=== PATIENT | male | born 1970 | race Caucasian/White ===

== ENCOUNTER 2023-05-02 10:23 | Inpatient (IN) | payer BC, SELFPAY ==
[2023-05-02] VITALS (29 sets, daily range): BP systolic 123–160; BP diastolic 76–108; PULSE 79–106; RESP 16–22; TEMP 36.7–36.8; O2SAT 94–99; BMI 36.1; BMI 35.7
--- NOTE | 2023-05-02 | IR_ITS ---
APPROVED REPORT Patient Location: Emer[facility] Radio Mechanic Helper: JAELYN Hughes RT (R) PROCEDURES Selective coronary angiogram Drug-eluting stent deployment to a chronically occluded proximal dominant right coronary artery Drug-eluting stent deployment to the proximal and mid LAD INDICATION Acute non-ST elevation myocardial infarction, Chronic occlusion of the right coronary artery, Coronary artery disease Informed consent was obtained prior to the procedure. COMPLICATIONS None Estimated Blood Loss: Less than 10 mls TECHNIQUE One percent lidocaine used to anesthetize the right anterior aspect of the wrist. The right radial artery was accessed via the Seldinger technique. A 6 Moz[place]ican sheath was placed in the right radial artery. 2.5 mg of Verapamil, 800 mcg of nitroglycerin, 1mg Lidocaine and 5000 U Heparin were given through the arterial sheath. The papa catheter was also used to perform right coronary selective angiography. The catheter was then used to perform left coronary artery angiography. At the end of the diagnostic angiogram therapeutic heparin was administered giving a therapeutic ACT and the guide catheter was placed in the right coronary followed by a Choice PT extra-support wire. The wire would not pass through the occlusion in the right coronary artery therefore a 2 mm x 12 mm balloon was advanced. The balloon was advanced to the tip of the chronic occlusion and the wire then pushed through the chronic occlusion. The balloon was advanced with significant pressure but eventually it was deployed at 18 grazyna which reduced the stenosis. A 3.5 x 38 mm [place] frontier stent was deployed at 20 grazyna reducing the chronic occlusion to 20%. A 3.75 x 12 mm noncompliant balloon was deployed at 20 grazyna in the proximal right coronary artery in order to further post dilate. ADY I flow was present at the beginning of the procedure with ADY-3 flow at the end of the procedure. Following this the guide catheter was exchanged for a 6 Moz[place] JL 3 guide catheter which was placed in the left main artery. A Choice PT extra-support wire was used to cross the occlusion in the mid LAD. A 3 mm x 26 mm [place] frontier stent was deployed at 18 grazyna reducing the subtotal occlusion to 0%. An additional 3 mm x 22 mm [place] frontier stent was placed proximal to the for stent yet still overlapping it and deployed at 24 grazyna to further reduce a proximal stenosis. ADY II flow was present at the beginning of the procedure with ADY-3 flow at the end of the procedure. At the end the procedure the apparatus was removed the sheath was removed and hemostasis was achieved using TR banding patient was transferred to the postop holding in stable condition ANGIOGRAPHIC RESULTS The left main artery Has a smooth ostial 20% stenosis The left anterior descending artery Has proximal 50% stenosis with a mid vessel greater than 95% stenosis accompanied by ADY II flow distally. The circumflex artery Is nondominant yet still large with proximal 30% stenosis. There is a small first obtuse marginal artery which has mid vessel 30% stenosis while an equally small second obtuse marginal artery is subtotally occluded. The right coronary artery Is large dominant and initially proximally chronically occluded. Following revascularization there was wide inline flow into a patent posterior lateral and posterior descending artery. Both PDA and PLV B have diffuse 30% stenoses The JACKSON ventriculogram reveals Not performed The left ventricular end-diastolic pressure Not measured IMPRESSION Chronically occluded proximal dominant right coronary artery with successful percutaneous revascularization reducing the 100% occlusion to 0% with 1 drug-eluting stent Subtotally occluded mid LAD with successful stenting of the proximal to mid LAD critical disease reduced to 0% with 2 contiguous drug-eluting stents Persistently subtotally occluded small second obtuse marginal artery which is not amenable to percutaneous revascularization PLAN 1. Effient 10 mg daily plus aspirin 81 mg daily 2. LDL less than 55 to be achieved with high intensity statin 3. Avoidance of tobacco products 4. Cardiac rehabilitation 5. Echocardiogram in the morning to determine ejection fraction and then treat accordingly 6. LifeVest if ejection fraction is 35% or less Electronically signed by : Chuy Burns MD 05/02/2023 17:07:50
--- NOTE | 2023-05-02 10:22 | ECG_ITS ---
APPROVED REPORT Exam: Resting ECG HR:87 bpm ECG Measurements Heart Rate 87 AXES NV 155 P 53 QRSd 93 QRS 62 QT 335 T 12 QTc 380 Conclusion SINUS RHYTHM MODERATE ST DEPRESSION [0.05+ mV ST DEPRESSION] ABNORMAL ECG UNCONFIRMED REPORT Electronically signed by : Kwan Rivera MD 05/03/2023 14:37:22
--- NOTE | 2023-05-02 10:28 | XR_ITS ---
FINAL REPORT CLINICAL HISTORY: chest pain progressive FINDINGS: SINGLE-VIEW CHEST The heart size is normal. The mediastinum is normal. The lungs are clear. There is no pneumothorax. There is a thoracolumbar scoliosis convex to the right measuring 30 degrees. IMPRESSION: No acute cardiopulmonary process. Reviewed, Interpreted and Dictated by Darien Albarran MD Transcribed by Brenda Nunn Authenticated and [facility]
[2023-05-02 10:34] LABS: Basophils # 0.1 K/mm3 (0-0.2); Basophils % 1.2 % (0.1-2.0); Eosinophils # 0.1 K/mm3 (0.0-0.4); Eosinophils % 1.2 % (0.1-12.0); Hematocrit 49.3 % (42.0-52.0); Hemoglobin 16.5 g/dL (14.1-18.0); Lymphocytes % 26.4 % (10-50); Mean Corpuscular HGB Conc 33.5 g/dL (31.8-35.4); Mean Corpuscular Hemoglobin 28.8 pg (27.0-31.2); Mean Platelet Volume 8.1 fl (7.4-10.4); Monocytes # 0.6 K/mm3 (0.1-1.0); Monocytes % 7.3 % (1.7-9.3); Neutrophils # 4.9 K/mm3 (1.8-7.8); Neutrophils % 63.9 % (37.0-80.0); Platelet Count 274 K/mm3 (142-424); Red Blood Count 5.73 M/mm3 (4.60-6.20); Red Cell Distribution Width 14.4 % (11.5-17.5); White Blood Count 7.7 K/mm3 (4.8-10.8)
[2023-05-02 10:38] LABS: Chloride 102 mmol/L (98-107); Potassium 3.9 mmoL/L (3.5-5.1); Sodium 137 mmol/L (136-145)
[2023-05-02 10:40] LABS: Blood Urea Nitrogen 11 mg/dl (9-20); Estimated Glomerular Filt Rate 89 ml/min (>60); GFR (African American) 108 ML/MIN (>60)
[2023-05-02 10:41] LABS: Alanine Aminotransferase 35 U/L (12-78); Albumin Level 4.2 g/dl (3.5-5.0); Albumin/Globulin Ratio 1.1 (1.1-1.8); Alkaline Phosphatase 125 U/L (38-126); Anion Gap 12.9 mEq/L (5-15); Aspartate Amino Transferase 36 U/L (17-59); Bilirubin,Total 2.1 mg/dl (0.2-1.3); Calcium 8.8 mg/dl (8.4-10.2); Carbon Dioxide 26 mmol/L (22.0-30.0); Glucose 110 mg/dl (74-100); Total Protein,Serum 8.2 g/dl (6.3-8.2)
[2023-05-02 10:54] LABS: Troponin I 0.29 ng/ml (0.00-0.034)
--- NOTE | 2023-05-02 10:57 | ED_ITS ---
Discharge Plan Disposition Patient Disposition: Admitted Referrals Follow up/Referrals: Tato Law MD [Primary Care Provider] - See instructions Clinical Impressions Clinical Impression: Non-ST elevation MT (NSTEMI) Discharge ED Provider: Tuan Villasenor General Chief Complaint: Chest Pain Stated Complaint: cp Time Seen by Provider: 05/02/23 10:28 Mode of Arrival: Ambulatory Source of Information: Patient Limitations: No Limitations Description of Symptoms (Recalled from ER Triage Doc. by RN): Patient states he began having chest pain around 0857 this morning. States he has had this before with exertion but comes and goes. Patient states he is not currently in pain at this time. History of Present Illness HPI narrative: 52-year-old male history of hypertension presenting with chest pain. Patient states that started around 8:57 AM just before arrival. Associated with pressure in his left arm. It is substernal/right of sternum, radiates to his left shoulder. No shortness of breath, vomiting, diaphoresis. He states he did feel nauseated. He has had these episodes on and off for the past few days. Worried because he has multiple family members who have of heart conditions. Related Data Allergies Allergy/AdvReac Type Severity Reaction Status Date / Time No Known Allergies Allergy Verified 05/02/23 11:05 [facility] Disclaimer: The information contained in this section may have been updated after the patient was seen, as this information can be updated by other users. Social History Smoking Status: Never smoker alcohol intake: never current occupational status: employed Travel in the last 8 weeks: None ROS Obtained: Yes All systems reviewed & no additional complaints except as documented Physical Exam General General appearance: alert Neck Neck exam: Present trachea midline Chest Chest inspection: Present normal inspection and symmetric chest wall rise Respiratory Respiratory exam: Present normal lung sounds bilaterally; Absent respiratory distress, wheezes, stridor, accessory muscle use or prolonged expiratory phase Cardiovascular Cardiovascular exam: Present regular rate and normal rhythm Extremities Exam Extremities exam: Absent edema Neurological Exam Neurological exam: Present alert, oriented X3 and CN II-XII intact Skin Skin exam: Present warm and dry; Absent cyanosis, diaphoresis or pallor HEART Score HEART Score HEART Score assessment performed?: Yes History (anamnesis): Moderately suspicious ECG: Non-specific disturbance Age: 45-65 years Risk factors: 1-2 risk factors Troponin: > 3x normal limit HEART Score: 6 Procedures Limited Ultrasound Indication:: Limited cardiac ultrasound Indication: Chest pain Identified cardiac views: -Cardiac parasternal long axis -Cardiac parasternal short axis Findings: -Cardiac activity present -Gross wall motion normal -Pericardial effusion absent -Right heart strain absent Impression: -Normal cardiac ultrasound Images were saved to permanent archive The study was technically adequate CPT: 06218 This study was performed by me, and I personally interpreted all images/videos. Based on my clinical judgement, these images were adequate and did not necessitate further imaging. Critical Care Critical Care Time Critical Care Time: Yes (cardiac) Attestation: On 05/02/23, the high probability of a clinically significant, sudden or life threatening deterioration of the following system(s) required my full and direct attention, intervention and personal management. The time I documented below is in addition to time spent performing reported procedures but includes the following listed in this critical care notation. Total Time Total Critical Care Time: 45 Medical Decision Making Medical Records Medical records reviewed: Yes I reviewed the patient's medical records. Sánchez Inquiry Pt receiving controlled substance: No Sánchez was queried for this patient: No Vital Signs Vital Signs: 05/02/23 10:23 05/02/23 10:43 05/02/23 10:30 Temperature 98.0 F Temperature Source Oral Pulse Rate 87 87 Pulse Rate [Right] 90 Respiratory Rate 18 Blood Pressure 149/88 H Blood Pressure [Right Arm] 149/98 H Blood Pressure Mean Blood Pressure Mean [Right Arm] 115 Blood Pressure Source [Right Arm] Automatic Cuff 02 Sat by Pulse Oximetry 99 97 Oxygen Delivery Method Room Air Room Air 05/02/23 11:05 05/02/23 11:30 05/02/23 12:01 Temperature Temperature Source Pulse Rate 81 81 89 Pulse Rate [Right] Respiratory Rate 18 16 19 Blood Pressure 160/108 H 159/98 H 148/92 H Blood Pressure [Right Arm] Blood Pressure Mean 122 Blood Pressure Mean [Right Arm] Blood Pressure Source [Right Arm] 02 Sat by Pulse Oximetry 99 95 96 Oxygen Delivery Method Room Air Room Air Room Air 05/02/23 12:30 05/02/23 13:37 05/02/23 13:42 Temperature Temperature Source Pulse Rate 92 H 88 106 H Pulse Rate [Right] Respiratory Rate 21 17 Blood Pressure 139/92 H 123/77 132/95 H Blood Pressure [Right Arm] Blood Pressure Mean Blood Pressure Mean [Right Arm] Blood Pressure Source [Right Arm] 02 Sat by Pulse Oximetry 99 97 98 Oxygen Delivery Method Room Air Room Air Room Air 05/02/23 13:43 Temperature Temperature Source Pulse Rate 94 H Pulse Rate [Right] Respiratory Rate 16 Blood Pressure 140/96 H Blood Pressure [Right Arm] Blood Pressure Mean Blood Pressure Mean [Right Arm] Blood Pressure Source [Right Arm] 02 Sat by Pulse Oximetry 98 Oxygen Delivery Method Room Air Lab Data Labs: Lab Results 05/02/23 10:24: WBC 7.7, RBC 5.73, Hgb 16.5, Hct 49.3, MCV 86.0, MCH 28.8, MCHC 33.5, RDW 14.4, Plt Count 274, MPV 8.1, Neut % (Auto) 63.9, Lymph % (Auto) 26.4, [place] % (Auto) 7.3, Eos % (Auto) 1.2, Baso % (Auto) 1.2, Neut # (Auto) 4.9, Lymph # (Auto) 2.0, [place] # (Auto) 0.6, Eos # (Auto) 0.1, Baso # (Auto) 0.1, APTT 32.5, D-Dimer 0.47, Sodium 137, Potassium 3.9, Chloride 102, Carbon Dioxide 26, Anion Gap 12.9, BUN 11, Creatinine 0.90, Estimated GFR 89, Est GFR ( Amer) 108, Glucose 110 H, Calcium 8.8, Total Bilirubin 2.1 H, AST 36, ALT 35, Alkaline Phosphatase 125, Troponin I 0.29 H, Total Protein 8.2, Albumin 4.2, Globulin 4.0 H, Albumin/Globulin Ratio 1.1 05/02/23 10:30: NT-Pro-B Natriuret Pep 88.5 05/02/23 12:53: Troponin I 0.80 H 05/02/23 10:24 05/02/23 10:24 Response Orders (Tests/Meds): ED MEDICATIONS Generic Name Dose Route Start Last Admin Trade Name Freq PRN Reason Stop Dose Admin Fentanyl Citrate 50 mcg 05/02/23 13:45 Fentanyl 100mcg/2ml Vial IV 05/03/23 01:46 Q3MINP PRN Moderate to Severe Pain (4-10) Fentanyl Citrate 25 mcg 05/02/23 13:45 Fentanyl 250mcg/5ml Vial IV 05/03/23 01:46 Q3MINP PRN Moderate to Severe Pain (4-10) Fentanyl Citrate 50 mcg 05/02/23 13:45 Fentanyl 250mcg/5ml Vial IV 05/03/23 01:46 Q3MINP PRN Moderate to Severe Pain (4-10) Fentanyl Citrate 25 mcg 05/02/23 13:45 Fentanyl 100mcg/2ml Vial IV 05/03/23 01:46 Q3MINP PRN Moderate to Severe Pain (4-10) Flumazenil 0.2 mg 05/02/23 13:45 Flumazenil 0.1mg/Ml 5ml Vial IV 05/03/23 01:46 NEEDED PRN Sedation Heparin Sodium (Porcine) 10,000 unit 05/02/23 13:45 Heparin 1,000 Units/Ml 10ml Vial (Piece Work Checker) IV 05/02/23 17:46 NEEDED PRN Emergency Box Upholstery Trimmer Hydralazine HCl 20 mg 05/02/23 13:45 Hydralazine 20mg/Ml Vial IV 05/02/23 17:46 ONCE PRN sbp>160 Heparin Sodium/Dextrose 500 mls @ 20 mls/hr 05/02/23 13:15 05/02/23 13:39 Heparin 25,000 Units In D5w 500ml Premix IV 06/01/23 13:14 Not Given .Q25H LANDEN 1,000 UNITS/HR Adenosine 180 mg/ Sodium 90 mls @ 634.392 mls/hr 05/02/23 13:45 Chloride IV 05/02/23 17:46 ONCE PRN fractional flow reserve 180 MCG/KG/MIN Adenosine 90 mg/ Sodium 90 mls @ 1,268.784 mls/hr 05/02/23 13:45 Chloride IV 05/02/23 17:46 ONCE PRN fractional flow reserve 180 MCG/KG/MIN Sodium Chloride 1,000 mls @ 25 mls/hr 05/02/23 13:45 Sod Chloride 0.9% 500ml Bag IV 05/03/23 13:46 .Q25H LANDEN Labetalol HCl 20 mg 05/02/23 13:45 Labetalol 20mg/4ml Syringe IV 05/02/23 17:46 ONCE PRN sbp>160 Midazolam HCl 1 mg 05/02/23 13:45 Midazolam 2mg/2ml Vial IV 05/03/23 01:46 Q3MINP PRN Sedation Midazolam HCl 1 mg 05/02/23 13:45 Midazolam Hcl 1mg/1ml 5ml Vial IV 05/03/23 01:46 Q3MINP PRN Sedation Naloxone HCl 0.4 mg 05/02/23 13:45 Naloxone 0.4mg/Ml Vial IV 05/03/23 01:46 Q5MINP PRN Decreased Respirations Nitroglycerin 800 mcg 05/02/23 13:45 Nitroglycerin 800mcg/8ml Syr (Piece Work Checker) IA 05/02/23 17:46 NEEDED PRN Emergency Box Upholstery Trimmer Protamine Sulfate 50 mg 05/02/23 13:45 Protamine Sulfate 50mg/5ml Vial (Piece Work Checker) IV 05/02/23 17:46 ONCE PRN act>200 Discontinued Medications Generic Name Dose Route Start Last Admin Trade Name Freq PRN Reason Stop Dose Admin Aspirin 324 mg 05/02/23 10:28 05/02/23 11:07 Aspirin 81mg Chewable Tablet PO 05/02/23 10:29 Not Given ONCE ONE Diphenhydramine HCl 50 mg 05/02/23 13:45 Diphenhydramine 50mg/Ml Vial IV 05/02/23 13:46 ONCE ONE Heparin Sodium (Porcine) 4,000 unit 05/02/23 13:15 05/02/23 13:32 Heparin Sodium 5,000 Unit/Ml Vial IV 05/02/23 13:16 4,000 unit ONCE ONE Administration Heparin Sodium/Sodium Chloride 3,000 unit 05/02/23 13:45 Heparin 1,000 Units/500ml Ns (Piece Work Checker) IV 05/02/23 13:46 ONCE ONE Iopamidol 100 ml 05/02/23 14:15 05/02/23 14:15 Iopamidol-370 (76%);100ml Bottle IV 05/02/23 14:16 100 ml ONCE ONE Administration Lidocaine HCl 20 ml 05/02/23 13:45 Lidocaine 1% 10ml Mdv IJ 05/02/23 13:46 ONCE ONE Lidocaine HCl 20 ml 05/02/23 13:45 Lidocaine 1% 5ml Pf Vial IJ 05/02/23 13:46 ONCE ONE Miscellaneous 1 each 05/02/23 13:00 Heparin Drip Consult NOTAPPLIC 06/01/23 12:59 CONSULT PHARMACY [facility] Sodium Chloride 10 ml 05/02/23 14:15 05/02/23 14:15 Sodium Chloride 0.9% 10ml Syr (Rad Only) IV 05/02/23 14:16 10 ml ONCE ONE Administration Sodium Chloride 50 ml 05/02/23 14:15 05/02/23 14:15 0.9 % Sodium Chloride 50 Ml Vial IV 05/02/23 14:16 50 ml ONCE ONE Administration Verapamil HCl 2.5 mg 05/02/23 13:45 Verapamil 2.5mg/Ml 2ml Vial IV 05/02/23 13:46 ONCE ONE ORDERS Category Date Time Status CTA Chest [CT angio chest - dissection] Stat Cat Scan 05/02/23 13:53 Taken POCUS Point of Care (ER Only) Stat Exams 05/02/23 10:28 Completed XR chest portable Stat Exams 05/02/23 10:28 Completed Basic Metabolic Panel Stat Lab 05/02/23 13:46 Ordered Brain Natriuretic Peptide Stat Lab 05/02/23 10:30 Completed Complete Blood Count Auto Diff Stat Lab 05/02/23 10:24 Completed Complete Blood Count Auto Diff Stat Lab 05/02/23 13:46 Ordered Comprehensive Metabolic Panel Stat Lab 05/02/23 10:24 Completed D-Dimer Stat Lab 05/02/23 10:24 Completed PTT Heparin (inpatient only) Stat Lab 05/02/23 10:24 Completed Troponin I Q3H Lab 05/02/23 12:53 Completed Troponin I Q3H Lab 05/02/23 16:30 Ordered Troponin I Stat Lab 05/02/23 10:24 Completed MDM Narrative Medical Decision Narrative: 52-year-old male history of hypertension presenting with chest pain. Patient states that started around 8:57 AM just before arrival. Associated with pressure in his left arm. It is substernal/right of sternum, radiates to his left shoulder. No shortness of breath, vomiting, diaphoresis. He states he did feel nauseated. He has had these episodes on and off for the past few days. Worried because he has multiple family members who have of heart conditions. History was obtained via conversation with patient. On arrival, patient hemodynamically stable, alert, oriented x4, appropriate, GCS 15, moving all extremities spontaneously, pupils equal and reactive to light. Full physical exam performed and significant for well-appearing male no acute distress. Lungs are clear to auscultation bilaterally, no abnormal cardiac findings. No lower extremity edema Differential includes ACS, MT, pneumothorax, PE, dissection, pneumothorax, aortic aneurysm, pneumonia, bronchitis, among others. Patient was given aspirin prior to arrival (81 x 6) for symptomatic management and correction of underlying abnormalities. Workup independently interpreted and significant for initial troponin 0.2. Nonactionable CBC or chemistry. Chest x-ray without pulmonary airspace disease. See radiology read for full review of final results. Bedside echo normal. Ind ependent interpretation of EKG shows sinus rhythm 87 beats a minute with ST depression isolated to lead I, no reciprocal change. NM, QRS, QT intervals within normal limits. Heart score 6. Patient was placed in observation beginning at 1030 in order to rule out evolving MT with serial troponins and determine need for admission versus home-going. The patient was provided heparin bolus and drip while awaiting results. Independent interpretation of results demonstrated positive delta troponin with second troponin being 0.8. On reevaluation, patient continuing to have pain that is 1-2 out of 10. At this time, I feel patient is appropriate admission for catheterization. Total observation time 4 hours.
[2023-05-02 11:15] LABS: NT Pro Brain Natriuretic Pep. 88.5 pg/mL (0-125)
--- NOTE | 2023-05-02 12:35 | ECG_ITS ---
APPROVED REPORT Exam: Resting ECG HR:85 bpm ECG Measurements Heart Rate 85 AXES TX 157 P 32 QRSd 86 QRS 32 QT 353 T -8 QTc 395 Conclusion SINUS RHYTHM LOW QRS VOLTAGE IN PRECORDIAL LEADS [QRS DEFLECTION < 1.0 mV IN CHEST LEADS] NONSPECIFIC T-WAVE ABNORMALITY BORDERLINE ECG UNCONFIRMED REPORT Electronically signed by : Kwan Rivera MD 05/03/2023 14:36:58
--- NOTE | 2023-05-02 13:27 | PC.NURSE ---
aware of trop of 0.80
[2023-05-02] MEDS: HEPARIN SODIUM 5,000 UNIT/ML VIAL 4000 UNIT IV (13:32)
[2023-05-02 13:43] LABS: PTT Heparin (inpatient only) 32.5 Seconds (23.6-34.0)
--- NOTE | 2023-05-02 13:53 | CT_ITS ---
FINAL REPORT TECHNIQUE: The patient was injected with IV contrast. Axial images were obtained through the chest in a PE protocol. 3-D reconstruction images were also performed. Individualized dose reduction techniques using automated exposure control or adjustment of the MA and/or KV according to patient's size were employed. CLINICAL HISTORY: r/o disection prior to cath FINDINGS: Mediastinal vasculature is adequately opacified. No pulmonary artery filling defects are identified to suggest PE. There is no aortic dissection. There is no axillary adenopathy. There is no hilar or mediastinal adenopathy. The heart size is normal. There is no pericardial or pleural effusion. Limited images of the upper abdomen reveal mild fatty infiltration of the liver. No suspicious infiltrate or nodule is identified. IMPRESSION: No pulmonary embolus or dissection. Reviewed, Interpreted and Dictated by Darien Albarran MD Transcribed by Brenda Nunn Authenticated and . [facility]
[2023-05-02 14:08] LABS: D-Dimer 0.47 ug/mL (0.0-0.5)
[2023-05-02] MEDS: IOPAMIDOL-370 (76%);100ML BOTTLE 100 ML IV (14:15)
[2023-05-02] MEDS: SODIUM CHLORIDE 0.9% 10ML SYR (RAD ONLY) 10 ML IV (14:15)
[2023-05-02] MEDS: 0.9 % SODIUM CHLORIDE 50 ML VIAL IV (14:15)
--- NOTE | 2023-05-02 14:33 | HMH.PHAINT1 ---
Pharmacy Intervention Comments: MEDICATION RECONCILIATION COMPLETED ON PATIENT USING EXTERNAL FILL HISTORY FROM PHARMACY. -CROW RAMOS, KIMD
--- NOTE | 2023-05-02 14:43 | PC.NURSE ---
Dr carpenter speaking with Dr Solis
--- NOTE | 2023-05-02 15:21 | PC.NURSE ---
pt has been clipped in all 4 sites and consented for heart cath
--- NOTE | 2023-05-02 15:40 | P.CONCA_ITS ---
History of Present Illness History of Present Illness Consult date: 05/02/23 Requesting physician: Tuan Villasenor Consult reason: chest pain Chief complaint: back pain History of present illness: 52-year-old white male without known cardiovascular disease who has a history of obesity with BMI of 36 and high blood pressure for several years. Recently reports blood pressures elevating over 170 with some exertional symptoms including back and shoulder discomfort. Today he was walking flat ground and felt pain subscapular region which radiated across his back. Typically the symptoms improved with a few deep breaths and rest but today they did not so he came to the emergency room for evaluation. EKG shows nonspecific T wave changes leads III and aVF, first troponin 0.2-second troponin 0.8. He is symptom-free at this time following aspirin and nitroglycerin. Blood pressure right arm 132/95 left arm 140/96. CTA is pending. [facility] Disclaimer: The information contained in this section may have been updated after the patient was seen, as this information can be updated by other users. Social History Smoking Status: Never smoker alcohol intake: never current occupational status: employed Travel in the last 8 weeks: None Review of Systems Constitutional Constitutional: Denies fatigue and Denies weakness Eyes Eyes: Denies loss of vision ENT Ears, Nose, Mouth, and Throat: Denies hearing loss and Denies vertigo *Cardiovascular Cardiovascular: Reports chest pain, Denies dyspnea and Denies syncope *Respiratory Respiratory: Denies cough and Denies dyspnea *Gastrointestinal Gastrointestinal: Denies change in stool character, Denies nausea and Denies vomiting *Genitourinary Genitourinary: Denies difficulty urinating *Musculoskeletal Musculoskeletal: Denies muscle weakness Integumentary/Breasts Skin/Breast: Denies changing lesions *Neurologic Neurologic: Denies loss of vision, Denies syncope, Denies vertigo and Denies weakness Endocrine Endocrine: Denies fatigue Exam Data for Last 24 hours Vital signs and Labs for Last 24 Hours: Temp Pulse Resp BP Pulse Ox O2 Del Method 98.0 F 81 17 138/94 H 97 Room Air 05/02/23 10:23 05/02/23 15:00 05/02/23 15:00 05/02/23 15:00 05/02/23 15:00 05/02/23 15:00 Laboratory Results - last 24 hr 05/02/23 10:24: WBC 7.7, RBC 5.73, Hgb 16.5, Hct 49.3, MCV 86.0, MCH 28.8, MCHC 33.5, RDW 14.4, Plt Count 274, MPV 8.1, Neut % (Auto) 63.9, Lymph % (Auto) 26.4, [place] % (Auto) 7.3, Eos % (Auto) 1.2, Baso % (Auto) 1.2, Neut # (Auto) 4.9, Lymph # (Auto) 2.0, [place] # (Auto) 0.6, Eos # (Auto) 0.1, Baso # (Auto) 0.1, APTT 32.5, D-Dimer 0.47, Sodium 137, Potassium 3.9, Chloride 102, Carbon Dioxide 26, Anion Gap 12.9, BUN 11, Creatinine 0.90, Estimated GFR 89, Est GFR ( Amer) 108, Glucose 110 H, Calcium 8.8, Total Bilirubin 2.1 H, AST 36, ALT 35, Alkaline Phosphatase 125, Troponin I 0.29 H, Total Protein 8.2, Albumin 4.2, Globulin 4.0 H, Albumin/Globulin Ratio 1.1 05/02/23 10:30: NT-Pro-B Natriuret Pep 88.5 05/02/23 12:53: Troponin I 0.80 H I & O for Last 24 hours: Intake & Output 04/29/23 04/30/23 05/01/23 05/02/23 23:59 23:59 23:59 23:59 Weight 259 lb Constitutional Constitutional: no acute distress and cooperative *Routine HEENT Exam Eye: Present PERRL *Routine Respiratory Exam Respiratory: Present CTA bilaterally; Absent accessory muscle use, wheezes or crackles *Routine Cardiovascular Exam Cardiovascular: Present RRR, Normal S1 and Normal S2; Absent murmur, gallop or rubs *Routine Abdominal Exam Abdominal: Present soft; Absent tenderness *Routine Extremities Exam Extremities: Present pulses intact; Absent cyanosis or edema *Routine Skin Exam Skin: Present intact; Absent erythema or wounds *Routine Neurological Exam Neurological: Present alert and oriented X3 Routine Psychiatric Exam Psychiatric: Present cooperative Meds Home Medications and Allergies Home Medications Medication Instructions Recorded Confirmed Type amlodipine 5 mg tablet 5 mg PO DAILY High Blood Pressure 05/02/23 05/02/23 History irbesartan 150 mg tablet 150 mg PO DAILY High Blood Pressure 05/02/23 05/02/23 History New Prescriptions to Start Prescriptions: Allergies Allergy/AdvReac Type Severity Reaction Status Date / Time No Known Allergies Allergy Verified 05/02/23 11:05 Assessment and Plan *Assessment and plan (1) Non-ST elevation [place] (NSTEMI): Status: Acute Category: Medical Code(s): I21.4 - Non-ST elevation (NSTEMI) myocardial infarction Plan NSTEMI -Patient's symptoms consistent with NSTEMI however need to rule out AAA first -Hold on heparin, stat CTA with plans for left heart cath pending results Hypertension -Slightly elevated here, 138/94 Obesity, BMI 36 -Will readdress outpatient Addendum: CTA negative, will proceed with, heparin, beta-bobby, statin. Left heart cath today.
[2023-05-02] MEDS: diphenhydrAMINE 50MG/ML VIAL 50 MG IV (16:48)
[2023-05-02] MEDS: NITROGLYCERIN 800MCG/8ML SYR (CATH LAB) 800 MCG IA ×2 (16:49→16:52)
[2023-05-02] MEDS: HEPARIN 1,000 UNITS/ML 10ML VIAL (CATH LAB) 10000 UNIT IV (16:49)
[2023-05-02] MEDS: VERAPAMIL 2.5MG/ML 2ML VIAL 2.5 MG IV (16:49)
[2023-05-02] MEDS: LIDOCAINE 1% 10ML MDV 20 ML IJ (16:49)
[2023-05-02] MEDS: 0.9 % SODIUM CHLORIDE 500 ML 25 ML IV (16:50)
[2023-05-02] MEDS: MIDAZOLAM HCL 1MG/1ML 5ML VIAL 1 MG IV (16:50)
[2023-05-02] MEDS: FENTANYL 100MCG/2ML VIAL 50 MCG IV (16:50)
[2023-05-02] MEDS: HEPARIN 1,000 UNITS/500ML NS (CATH LAB) 3000 UNIT IV (16:50)
[2023-05-02] MEDS: PRASUGREL 10MG TAB 60 MG PO (17:05)
[2023-05-02] MEDS: IOPAMIDOL-370 (76%);100ML BOTTLE 175 ML IV (18:32)
[2023-05-02 18:34] LABS: CATHL Activated Clotting Time > 400 SEC (74-125)
--- NOTE | 2023-05-02 18:40 | EXP.HP ---
History of Present Illness *Admission Date: 05/02/23 *Reason for visit:: Chest pain *History of present illness: This 52-year-old white male has hypertensive disease. He was seen in the office of [facility] yesterday. The day prior to that visit (Saturday) he had had a 20-minute episode of chest pain radiating to the back with shortness of breath and nausea. Blood pressure was elevated in the office yesterday. He states that he slept okay last night. This morning he awoke with chest pain shortness of breath nausea. He presented in the emergency room. He was found to have elevated troponins. CTA was ordered and was negative for evidence of dissection. It was felt that he warranted cardiac catheterization. He was seen by Dr. Burns and treated and stented accordingly. See report. From ER report: Initial troponin 0.2. Nonactionable CBC or chemistry. Chest x-ray without pulmonary airspace disease. See radiology read for full review of final results. Bedside echo normal. Independent interpretation of EKG shows sinus rhythm 87 beats a minute with ST depression isolated to lead I, no reciprocal change. GA, QRS, QT intervals within normal limits. Heart score 6. Patient was placed in observation beginning at 1030 in order to rule out evolving MO with serial troponins and determine need for admission versus home-going. The patient was provided heparin bolus and drip while awaiting results. Independent interpretation of results demonstrated positive delta troponin with second troponin being 0.8. On reevaluation, patient continuing to have pain that is 1-2 out of 10. At this time, patient is appropriate admission for catheterization. The patient has been a non-smoker. He does have a family history of cardiac disease. [facility] Disclaimer: The information contained in this section may have been updated after the patient was seen, as this information can be updated by other users. Medical History (Updated 05/02/23 @ 18:59 by Jose Solis MD) Hypertensive cardiovascular disease Surgical History (Updated 05/02/23 @ 18:59 by Jose Solis MD) History of arthroplasty of right ankle Status post coronary artery stent placement Social History Smoking Status: Never smoker alcohol intake: never current occupational status: employed Travel in the last 8 weeks: None Review of Systems Constitutional Constitutional: Denies fever(s), Denies poor appetite and Denies weakness Eyes Eyes: Denies change in vision and Denies loss of vision ENT Ears, Nose, Mouth, and Throat: Denies throat swelling, Denies tongue swelling and Denies vertigo Comments: Tonsillectomy and tympanostomy tubes in 1977. *Cardiovascular Cardiovascular: Reports as per HPI, Reports chest pain, Reports dyspnea, Denies edema, Denies irregular heart rhythm and Denies syncope *Respiratory Respiratory: Reports dyspnea *Gastrointestinal Gastrointestinal: Denies abdominal pain, Denies belching, Denies bloating, Denies change in bowel habits, Denies change in stool character and Denies cramping *Genitourinary Genitourinary: Denies urinary frequency, Denies urinary hesitancy, Denies urinary incontinence and Denies urinary urgency Comments: History of vasectomy 2007. *Musculoskeletal Musculoskeletal: Reports arthralgias (Right ankle. Status post fusion 2001.) and Reports other (Back surgery 2017.) *Neurologic Neurologic: Denies behavioral changes, Denies loss of vision, Denies syncope, Denies vertigo and Denies weakness Psychiatric Psychiatric: Denies abnormal sleep pattern, Denies anxiety, Denies behavioral changes and Denies depression Endocrine Endocrine: Denies change in body appearance Allergic/Immunologic Allergic/Immunologic: Denies throat swelling and Denies tongue swelling Meds Home Medications and Allergies Home Medications Medication Instructions Recorded Confirmed Type amlodipine 5 mg tablet 5 mg PO DAILY High Blood Pressure 05/02/23 05/02/23 History irbesartan 150 mg tablet 150 mg PO DAILY High Blood Pressure 05/02/23 05/02/23 History New Prescriptions to Start Prescriptions: Allergies Allergy/AdvReac Type Severity Reaction Status Date / Time No Known Allergies Allergy Verified 05/02/23 11:05 Exam Data for Last 24 hours Vital signs and Labs for Last 24 Hours: Temp Pulse Resp BP Pulse Ox O2 Del Method 98.2 F 89 18 154/82 H 98 Room Air 05/02/23 18:10 05/02/23 18:10 05/02/23 18:10 05/02/23 18:10 05/02/23 18:10 05/02/23 18:10 Laboratory Results - last 24 hr 05/02/23 10:24: WBC 7.7, RBC 5.73, Hgb 16.5, Hct 49.3, MCV 86.0, MCH 28.8, MCHC 33.5, RDW 14.4, Plt Count 274, MPV 8.1, Neut % (Auto) 63.9, Lymph % (Auto) 26.4, Barton % (Auto) 7.3, Eos % (Auto) 1.2, Baso % (Auto) 1.2, Neut # (Auto) 4.9, Lymph # (Auto) 2.0, Barton # (Auto) 0.6, Eos # (Auto) 0.1, Baso # (Auto) 0.1, APTT 32.5, D-Dimer 0.47, Sodium 137, Potassium 3.9, Chloride 102, Carbon Dioxide 26, Anion Gap 12.9, BUN 11, Creatinine 0.90, Estimated GFR 89, Est GFR ( Amer) 108, Glucose 110 H, Calcium 8.8, Total Bilirubin 2.1 H, AST 36, ALT 35, Alkaline Phosphatase 125, Troponin I 0.29 H, Total Protein 8.2, Albumin 4.2, Globulin 4.0 H, Albumin/Globulin Ratio 1.1 05/02/23 10:30: NT-Pro-B Natriuret Pep 88.5 05/02/23 12:53: Troponin I 0.80 H 05/02/23 17:24: Activated Clotting Time > 400 H* I & O for Last 24 hours: Intake & Output 04/30/23 05/01/23 05/02/23 05/03/23 11:59 11:59 11:59 11:59 Intake Total 470 / 470 Balance 470 / 470 Weight 259 lb 256 lb 5 oz Constitutional Constitutional: no acute distress (Post catheterization and stenting) *Routine HEENT Exam Head: Present normocephalic Eye: Present EOMI and PERRL; Absent conjunctival icterus or scleral injection ENT: Present mucous membranes moist *Routine Neck Exam Neck: Present full ROM; Absent JVD Routine Chest/Breast/Axilla Exam Chest wall: Absent tenderness Breast: Absent tenderness Axillae: Absent lymphadenopathy or tenderness *Routine Respiratory Exam Respiratory: Present CTA bilaterally, rales (Only a few bibasilar rales) and normal respiratory effort; Absent respiratory distress, stridor or wheezes *Routine Cardiovascular Exam Cardiovascular: Present RRR and ectopic (Occasional ectopics heard, but post exam monitor looks quite stable.) *Routine Abdominal Exam Abdominal: Present soft; Absent tenderness or distended *Routine Rectal Exam Rectal:: deferred *Routine Genitalia Exam Genitalia:: deferred *Routine Extremities Exam Extremities: Absent edema Comments: Bimalleolar scars of the right ankle. Right wrist with dressing and pressure device in place Routine Back/Spine/Pelvis Exam Back/Spine: Absent CVA tenderness or vertebral tenderness *Routine Skin Exam Skin: Present intact *Routine Neurological Exam Neurological: Present alert, oriented X3 and moving all extremities; Absent altered mental status Routine Psychiatric Exam Psychiatric: Present normal affect and normal thought process Assessment and Plan *Assessment and plan (1) Non-ST elevation [place] (NSTEMI): Status: Acute Category: Medical Code(s): I21.4 - Non-ST elevation (NSTEMI) myocardial infarction (2) Hypertensive cardiovascular disease: Status: Acute Category: Medical Code(s): I11.9 - Hypertensive heart disease without heart failure (3) History of arthroplasty of right ankle: Status: Acute Category: Surgical Code(s): Z96.661 - Presence of right artificial ankle joint (4) Status post coronary artery stent placement: Status: Acute Category: Surgical Code(s): Z95.5 - Presence of coronary angioplasty implant and graft Plan See orders.
[2023-05-02] MEDS: ATORVASTATIN 40MG TABLET 40 MG PO (20:03)
[2023-05-02] MEDS: CARVEDILOL 6.25MG TABLET 6.25 MG PO (22:03)
[2023-05-03] VITALS (9 sets, daily range): BP systolic 124–149; BP diastolic 75–91; PULSE 75–100; RESP 16–18; TEMP 36.9–37.3; O2SAT 94–98; BMI 34.8
--- NOTE | 2023-05-03 06:17 | PC.NURSE ---
traclet off at 2300 - no complications. denies cp, soa, etc - girlfriend at bedside t/o night
[2023-05-03 06:39] LABS: Basophils # 0.1 K/mm3 (0-0.2); Basophils % 0.7 % (0.1-2.0); Eosinophils # 0.1 K/mm3 (0.0-0.4); Eosinophils % 0.6 % (0.1-12.0); Hematocrit 46.7 % (42.0-52.0); Hemoglobin 15.9 g/dL (14.1-18.0); Lymphocytes # 2.1 K/mm3 (0.7-4.5); Lymphocytes % 20.9 % (10-50); Mean Corpuscular Hemoglobin 28.6 pg (27.0-31.2); Mean Corpuscular Volume 84.3 fl (80-94); Mean Platelet Volume 7.8 fl (7.4-10.4); Monocytes # 0.8 K/mm3 (0.1-1.0); Monocytes % 8.1 % (1.7-9.3); Neutrophils % 69.7 % (37.0-80.0); Platelet Count 245 K/mm3 (142-424); Red Blood Count 5.54 M/mm3 (4.60-6.20); Red Cell Distribution Width 14.6 % (11.5-17.5); White Blood Count 10.1 K/mm3 (4.8-10.8)
[2023-05-03 06:46] LABS: Anion Gap 13.9 mEq/L (5-15); Blood Urea Nitrogen 7 mg/dl (9-20); Calcium 8.7 mg/dl (8.4-10.2); Carbon Dioxide 22 mmol/L (22.0-30.0); Chloride 103 mmol/L (98-107); Creatinine Clearance Estimated 176 mL/min (50-200); Estimated Glomerular Filt Rate 102 ml/min (>60); GFR (African American) 124 ML/MIN (>60); Glucose 104 mg/dl (74-100); Potassium 3.9 mmoL/L (3.5-5.1); Sodium 135 mmol/L (136-145)
--- NOTE | 2023-05-03 08:28 | CA_ITS ---
APPROVED REPORT EXAM: Comprehensive 2D, Doppler, and color-flow Echocardiogram with contrast Toolroom Helper: Zenobia Garcia RT(R) Ht: 5 ft 11 in Wt: 259lbs BSA: 2.35 BP: 154/82 mmHg Indications: NSTEMI, CP, HAY, HTN, family history of HD Echo Enhancing Agent Indication: Endocardial border delineation Agent(s) / Amount(s) Used: Definity 2 cc M-Mode Dimensions RVDd 2.58 cm (0.9-2.6) LA Diam 2.97 cm (1.9-4.0) LVDd 4.41 cm (3.5-5.7) LVDs 3.80 cm (3.5-5.7) IVSd 1.06 cm (0.6-1.1) PWd 0.93 cm (0.6-1.1) EF (Teich) 29.70% FS 13.80% EDV (Teich) 88.20 mL ESV (Teich) 62.00 mL LV Diastology E Decel Time 150 (160-240 msec) E/A Ratio 0.7 Mitral Valve MV E Max [place]. 58.0 (40-130 cm/s) MV A Velocity 88.0 (40-130 cm/s) E/A Ratio 0.66 MV PHT 44.0 ms Left Ventricle The left ventricle is normal size. The left ventricular systolic function is mildly reduced. There is increased left ventricular wall thickness. There is mild global hypokinesis present. There is severe hypokinesis of the septal, anteroseptal, and inferoseptal LV mccauley. Transmitral Doppler flow pattern suggests impaired LV relaxation. LVEF is 40-45%. Right Ventricle The right ventricle is normal size. The right ventricular systolic function is normal. Atria The left atrium size is normal. The right atrium size is normal. The interatrial septum is not well visualized. Aortic Valve The aortic valve is mildly thickened. There is no aortic valvular stenosis. No aortic regurgitation is present. Mitral Valve The mitral valve leaflets are mildly thickened. No evidence of mitral valve stenosis. Trace mitral regurgitation. Tricuspid Valve The tricuspid valve leaflets are thin and pliable. Trace tricuspid regurgitation. There is insufficient TR jet to estimate RVSP. Pulmonic Valve The pulmonary valve is normal in structure. Trace pulmonic regurgitation. Great Vessels The aortic root is normal in size. The ascending aorta is normal in size. The IVC is not well visualized. Pericardium There is no pericardial effusion. Other Information Study Quality: Technically Difficult Conclusion Technically difficult study due to poor accoustic windows. Mild reduction in LV systolic function (LVEF 40-45%). Severe hypokinesis of the septal, anteroseptal, and inferoseptal LV mccauley. No significant valvular stenosis or regurgitation. Electronically signed by : Thao Canchola MD 05/03/2023 19:43:48
--- NOTE | 2023-05-03 08:33 | EXP.ACUTE.PN ---
Subjective *Date: 05/03/23 *Time: 08:53 Interval history: Patient is feeling better this morning. He denies any chest pain or shortness of breath. He states he rested well. Medical Exam Vital signs and Labs for Last 24 Hours: Vital Signs Temp Pulse Pulse Resp BP BP Pulse Ox 05/03/23 07:43 98.7 F 96 H 17 141/82 H 94 L 05/03/23 06:11 05/03/23 04:00 86 05/03/23 05:00 05/03/23 03:00 05/03/23 01:00 05/03/23 04:00 98.4 F 98 H 16 149/91 H 95 05/03/23 00:10 75 18 126/84 97 05/02/23 23:10 80 18 140/90 96 05/02/23 22:10 89 18 155/100 H 96 05/02/23 21:10 80 16 152/90 H 95 05/02/23 20:10 95 H 18 149/80 H 94 L 05/03/23 00:52 85 05/02/23 19:40 82 18 147/94 H 97 05/02/23 19:10 84 18 142/90 H 98 05/02/23 22:34 05/02/23 20:00 05/02/23 21:00 05/02/23 18:40 98.0 F 89 18 141/87 H 98 05/02/23 18:10 98.2 F 89 18 154/82 H 98 05/02/23 17:40 98.1 F 83 16 142/80 H 96 05/02/23 17:55 98.0 F 83 16 130/79 97 05/02/23 17:25 98.0 F 86 16 146/80 H 97 05/02/23 18:08 05/02/23 17:10 87 19 135/76 96 05/02/23 17:00 88 20 134/92 H 96 05/02/23 17:05 83 20 131/91 H 95 05/02/23 16:57 90 90 20 140/92 H 95 05/02/23 16:04 98.0 F 79 18 130/85 05/02/23 15:00 81 17 138/94 H 97 05/02/23 14:30 94 H 22 138/91 H 96 05/02/23 14:24 103 H 142/83 H 98 05/02/23 13:43 94 H 16 140/96 H 98 05/02/23 13:42 106 H 17 132/95 H 98 05/02/23 13:37 88 123/77 97 05/02/23 12:30 92 H 21 139/92 H 99 05/02/23 12:01 89 19 148/92 H 96 05/02/23 11:30 81 16 159/98 H 95 05/02/23 11:05 81 18 160/108 H 99 05/02/23 10:30 87 149/88 H 97 05/02/23 10:43 87 05/02/23 10:23 98.0 F 90 18 149/98 H 99 O2 Del Method 05/03/23 07:43 Room Air 05/03/23 06:11 Room Air 05/03/23 04:00 05/03/23 05:00 Room Air 05/03/23 03:00 Room Air 05/03/23 01:00 Room Air 05/03/23 04:00 Room Air 05/03/23 00:10 Nasal Cannula 05/02/23 23:10 Room Air 05/02/23 22:10 05/02/23 21:10 Room Air 05/02/23 20:10 05/03/23 00:52 05/02/23 19:40 Room Air 05/02/23 19:10 05/02/23 22:34 Room Air 05/02/23 20:00 Room Air 05/02/23 21:00 Room Air 05/02/23 18:40 Room Air 05/02/23 18:10 Room Air 05/02/23 17:40 Room Air 05/02/23 17:55 Room Air 05/02/23 17:25 Room Air 05/02/23 18:08 Room Air 05/02/23 17:10 05/02/23 17:00 Room Air 05/02/23 17:05 Room Air 05/02/23 16:57 Room Air 05/02/23 16:04 Room Air 05/02/23 15:00 Room Air 05/02/23 14:30 Room Air 05/02/23 14:24 Room Air 05/02/23 13:43 Room Air 05/02/23 13:42 Room Air 05/02/23 13:37 Room Air 05/02/23 12:30 Room Air 05/02/23 12:01 Room Air 05/02/23 11:30 Room Air 05/02/23 11:05 Room Air 05/02/23 10:30 Room Air 05/02/23 10:43 05/02/23 10:23 Room Air Intake and Output 05/02/23 05/03/23 05/03/23 19:59 03:59 11:59 Intake Total 470 / 850 140 / 850 240 / 850 Output Total 0 / 0 0 / 0 Balance 470 / 850 140 / 850 240 / 850 Intake: Intake, Oral Amount 470 / 830 120 / 830 240 / 830 Intake, Other Amount 20 / 20 Output: Output, Urine Amount 0 / 0 0 / 0 Other: Intake, Other Source Saline Solution Number of Unmeasured Voids 1 1 Weight 256 lb 5 oz 248 lb 11.2 oz Patient Weight 05/03/23 11:59 Weight 248 lb 11.2 oz Laboratory Results - last 24 hr 05/02/23 10:24: WBC 7.7, RBC 5.73, Hgb 16.5, Hct 49.3, MCV 86.0, MCH 28.8, MCHC 33.5, RDW 14.4, Plt Count 274, MPV 8.1, Neut % (Auto) 63.9, Lymph % (Auto) 26.4, [place] % (Auto) 7.3, Eos % (Auto) 1.2, Baso % (Auto) 1.2, Neut # (Auto) 4.9, Lymph # (Auto) 2.0, [place] # (Auto) 0.6, Eos # (Auto) 0.1, Baso # (Auto) 0.1, APTT 32.5, D-Dimer 0.47, Sodium 137, Potassium 3.9, Chloride 102, Carbon Dioxide 26, Anion Gap 12.9, BUN 11, Creatinine 0.90, Estimated GFR 89, Est GFR ( Amer) 108, Glucose 110 H, Calcium 8.8, Total Bilirubin 2.1 H, AST 36, ALT 35, Alkaline Phosphatase 125, Troponin I 0.29 H, Total Protein 8.2, Albumin 4.2, Globulin 4.0 H, Albumin/Globulin Ratio 1.1 05/02/23 10:30: NT-Pro-B Natriuret Pep 88.5 05/02/23 12:53: Troponin I 0.80 H 05/02/23 17:24: Activated Clotting Time > 400 H* 05/02/23 20:14: Troponin I 30.50 H 05/03/23 06:16: WBC 10.1 D, RBC 5.54, Hgb 15.9, Hct 46.7, MCV 84.3, MCH 28.6, MCHC 34.0, RDW 14.6, Plt Count 245, MPV 7.8, Neut % (Auto) 69.7, Lymph % (Auto) 20.9, [place] % (Auto) 8.1, Eos % (Auto) 0.6, Baso % (Auto) 0.7, Neut # (Auto) 7.0, Lymph # (Auto) 2.1, [place] # (Auto) 0.8, Eos # (Auto) 0.1, Baso # (Auto) 0.1, Sodium 135 L, Potassium 3.9, Chloride 103, Carbon Dioxide 22, Anion Gap 13.9, BUN 7 L D, Creatinine 0.80, Estimated Creat Clear 176, Estimated GFR 102, Est GFR ( Amer) 124, Glucose 104 H, Calcium 8.7 I & O for Labs for Last 24 Hours: Intake & Output 04/30/23 05/01/23 05/02/23 05/03/23 11:59 11:59 11:59 11:59 Intake Total 850 / 850 Output Total 0 / 0 Balance 850 / 850 Weight 259 lb 248 lb 11.2 oz Constitutional: Present no acute distress Respiratory: Present CTA bilaterally Cardiac: Present Reg Rate and Rhythm GI: Present soft and normal bowel sounds; Absent distention or tenderness Extremities: Absent edema, clubbing or cyanosis Skin: Present intact Neuro: Present alert and awake Assessment and Plan *Assessment and plan (1) Non-ST elevation [place] (NSTEMI): Status: Acute Category: Medical Code(s): I21.4 - Non-ST elevation (NSTEMI) myocardial infarction (2) Hypertensive cardiovascular disease: Status: Acute Category: Medical Code(s): I11.9 - Hypertensive heart disease without heart failure (3) History of arthroplasty of right ankle: Status: Acute Category: Surgical Code(s): Z96.661 - Presence of right artificial ankle joint (4) Status post coronary artery stent placement: Status: Acute Category: Surgical Code(s): Z95.5 - Presence of coronary angioplasty implant and graft Plan Patient is doing well post cath and stenting. Cardiology to follow. Dr. Law entry - Saw patient, agree with above note.
[2023-05-03 08:53] LABS: Chol/HDL Ratio 6.8 (1-3.5); Cholesterol 196 mg/dl (140-200); HDL Cholesterol 29 mg/dl (40-60); Triglycerides 76 mg/dl (30-150); VLDL Cholesterol 15 mg/dL (0-40)
[2023-05-03 09:03] LABS: Direct LDL Cholesterol 140.45 mg/dL (100-129)
[2023-05-03] MEDS: PRASUGREL 10MG TAB 10 MG PO (09:18)
[2023-05-03] MEDS: ASPIRIN 81MG CHEWABLE TABLET 81 MG PO (09:18)
[2023-05-03] MEDS: CARVEDILOL 6.25MG TABLET 6.25 MG PO ×2 (09:18→18:55)
[2023-05-03] MEDS: DEFINITY US ECHO CONTRAST 2ML INJ 2 MG IV (09:25)
[2023-05-03] MEDS: IRBESARTAN 150MG TAB 150 MG PO (11:00)
--- NOTE | 2023-05-03 11:32 | EXP.CARD.PN ---
Subjective Subjective Date: 05/03/23 Time: 10:00 Principal diagnosis: NSTEMI Interval history: Left heart cath last night with successful stenting of RCA and LAD. Please refer to heart cath for details. Patient reports he is feeling at baseline today, no chest pain or shortness of breath. Exam Data for Last 24 hours Vital signs and Labs for Last 24 Hours: Temp Pulse Resp BP Pulse Ox O2 Del Method 99.2 F 94 H 18 126/80 98 Room Air 05/03/23 11:19 05/03/23 11:19 05/03/23 11:19 05/03/23 11:19 05/03/23 11:19 05/03/23 11:19 Laboratory Results - last 24 hr 05/02/23 10:24: APTT 32.5, D-Dimer 0.47 05/02/23 12:53: Troponin I 0.80 H 05/02/23 17:24: Activated Clotting Time > 400 H* 05/02/23 20:14: Troponin I 30.50 H 05/03/23 06:16: WBC 10.1 D, RBC 5.54, Hgb 15.9, Hct 46.7, MCV 84.3, MCH 28.6, MCHC 34.0, RDW 14.6, Plt Count 245, MPV 7.8, Neut % (Auto) 69.7, Lymph % (Auto) 20.9, [place]ff[place] % (Auto) 8.1, Eos % (Auto) 0.6, Baso % (Auto) 0.7, Neut # (Auto) 7.0, Lymph # (Auto) 2.1, [place] # (Auto) 0.8, Eos # (Auto) 0.1, Baso # (Auto) 0.1, Sodium 135 L, Potassium 3.9, Chloride 103, Carbon Dioxide 22, Anion Gap 13.9, BUN 7 L D, Creatinine 0.80, Estimated Creat Clear 176, Estimated GFR 102, Est GFR ( Amer) 124, Glucose 104 H, Calcium 8.7, Triglycerides 76, Cholesterol 196, LDL Cholesterol Direct 140.45 H, VLDL Cholesterol 15, HDL Cholesterol 29 L, Cholesterol/HDL Ratio 6.8 H I & O for Last 24 hours: Intake & Output 04/30/23 05/01/23 05/02/23 05/03/23 23:59 23:59 23:59 23:59 Intake Total 610 / 610 240 / 240 Output Total 0 / 0 Balance 610 / 610 240 / 240 Weight 256 lb 5 oz 248 lb 11.2 oz Constitutional Constitutional: no acute distress and cooperative *Routine HEENT Exam Eye: Present PERRL *Routine Respiratory Exam Respiratory: Present CTA bilaterally; Absent accessory muscle use, wheezes or crackles *Routine Cardiovascular Exam Cardiovascular: Present RRR, Normal S1 and Normal S2; Absent murmur, gallop or rubs *Routine Abdominal Exam Abdominal: Present soft; Absent tenderness *Routine Extremities Exam Extremities: Present pulses intact; Absent cyanosis or edema *Routine Skin Exam Skin: Present intact; Absent erythema or wounds *Routine Neurological Exam Neurological: Present alert and oriented X3 Routine Psychiatric Exam Psychiatric: Present cooperative Progress Note: A&P Assessment and plan (1) Non-ST elevation [place] (NSTEMI): Status: Acute (2) Hypertensive cardiovascular disease: Status: Acute (3) History of arthroplasty of right ankle: Status: Acute (4) Status post coronary artery stent placement: Status: Acute Assessment and Plan Assessment and Plan for All Diagnoses:: MV-CAD s/p NSTEMI with PCI 05/02/23 -Patient presented with worsening episodes of HAY and subscapular pain. Rising serial troponins in the ED with inferior T wave changes. - LHC 05/02 IMPRESSION Chronically occluded proximal dominant right coronary artery with successful percutaneous revascularization reducing the 100% occlusion to 0% with 1 drug-eluting stent Subtotally occluded mid LAD with successful stenting of the proximal to mid LAD critical disease reduced to 0% with 2 contiguous drug-eluting stents Persistently subtotally occluded small second obtuse marginal artery which is not amenable to percutaneous revascularization - Plan: DAPT, Statin, BB, ARB, Cardiac Rehab, risk factor control. 2D ECHO today. Hypertension -Slightly elevated here, 138/94 -cont BB/ARB, OP BP log Obesity, BMI 36 -Will readdress outpatient -Check A1C and LDL 05/03: DC pending ECHO results.
--- NOTE | 2023-05-03 16:40 | PC.NURSE ---
Cardiology office called at pt. request. Results for echo still not available. Pt. was told by cardiology that he should be able to be d/c'd this afternoon. No answer in office.
[2023-05-03 18:03] LABS: Hemoglobin A1C 5.5 % (4.0-6.0)
--- NOTE | 2023-05-03 18:51 | EXP.ACUTE.PN ---
Subjective *Date: 05/03/23 *Time: 18:51 Interval history: Patient has had a good day, no new complaints, anxious to go home. Medical Exam Vital signs and Labs for Last 24 Hours: Vital Signs Temp Pulse Pulse Resp BP Pulse Ox O2 Del Method 05/03/23 17:03 99 H 05/03/23 17:00 Room Air 05/03/23 15:18 98.7 F 95 H 18 124/75 95 Room Air 05/03/23 15:00 Room Air 05/03/23 12:00 96 H 05/03/23 08:00 100 H 05/03/23 13:00 Room Air 05/03/23 11:00 Room Air 05/03/23 09:00 Room Air 05/03/23 11:19 99.2 F 94 H 18 126/80 98 Room Air 05/03/23 08:00 Room Air 05/03/23 07:43 98.7 F 96 H 17 141/82 H 94 L Room Air 05/03/23 06:11 Room Air 05/03/23 04:00 86 05/03/23 05:00 Room Air 05/03/23 03:00 Room Air 05/03/23 01:00 Room Air 05/03/23 04:00 98.4 F 98 H 16 149/91 H 95 Room Air 05/03/23 00:10 75 18 126/84 97 Nasal Cannula 05/02/23 23:10 80 18 140/90 96 Room Air 05/02/23 22:10 89 18 155/100 H 96 05/02/23 21:10 80 16 152/90 H 95 Room Air 05/02/23 20:10 95 H 18 149/80 H 94 L 05/03/23 00:52 85 05/02/23 19:40 82 18 147/94 H 97 Room Air 05/02/23 19:10 84 18 142/90 H 98 05/02/23 22:34 Room Air 05/02/23 20:00 Room Air 05/02/23 21:00 Room Air Intake and Output 05/03/23 05/03/23 05/03/23 07:59 15:59 23:59 Intake Total 240 / 840 240 / 840 360 / 840 Output Total 0 / 0 0 / 0 0 / 0 Balance 240 / 840 240 / 840 360 / 840 Intake: Intake, Oral Amount 240 / 840 240 / 840 360 / 840 Output: Output, Urine Amount 0 / 0 0 / 0 0 / 0 Other: Number of Voids 1 Number of Unmeasured Voids 1 2 1 Weight 248 lb 11.2 oz 248 lb 10.903 oz Patient Weight 05/03/23 23:59 Weight 248 lb 10.903 oz Laboratory Results - last 24 hr 05/02/23 20:14: Troponin I 30.50 H 05/03/23 06:16: WBC 10.1 D, RBC 5.54, Hgb 15.9, Hct 46.7, MCV 84.3, MCH 28.6, MCHC 34.0, RDW 14.6, Plt Count 245, MPV 7.8, Neut % (Auto) 69.7, Lymph % (Auto) 20.9, [place] % (Auto) 8.1, Eos % (Auto) 0.6, Baso % (Auto) 0.7, Neut # (Auto) 7.0, Lymph # (Auto) 2.1, [place] # (Auto) 0.8, Eos # (Auto) 0.1, Baso # (Auto) 0.1, Sodium 135 L, Potassium 3.9, Chloride 103, Carbon Dioxide 22, Anion Gap 13.9, BUN 7 L D, Creatinine 0.80, Estimated Creat Clear 176, Estimated GFR 102, Est GFR ( Amer) 124, Glucose 104 H, Hemoglobin A1c 5.5, Calcium 8.7, Triglycerides 76, Cholesterol 196, LDL Cholesterol Direct 140.45 H, VLDL Cholesterol 15, HDL Cholesterol 29 L, Cholesterol/HDL Ratio 6.8 H I & O for Labs for Last 24 Hours: Intake & Output 04/30/23 05/01/23 05/02/23 05/03/23 23:59 23:59 23:59 23:59 Intake Total 610 / 610 840 / 840 Output Total 0 / 0 Balance 610 / 610 840 / 840 Weight 256 lb 5 oz 248 lb 10.903 oz Radiology Reports for the Last 24 Hours: Spoke to Dr. Osuna, Echo shows LVEF 40-45% Assessment and Plan *Assessment and plan (1) Non-ST elevation ID (NSTEMI): Status: Acute Category: Medical Code(s): I21.4 - Non-ST elevation (NSTEMI) myocardial infarction (2) Status post coronary artery stent placement: Status: Acute Category: Surgical Code(s): Z95.5 - Presence of coronary angioplasty implant and graft (3) Hypertensive cardiovascular disease: Status: Acute Category: Medical Code(s): I11.9 - Hypertensive heart disease without heart failure (4) Decreased cardiac ejection fraction: Status: Acute Category: Medical Code(s): R93.1 - Abnormal findings on diagnostic imaging of heart and coronary circulation Plan OK per cardiology to discharge home. Plan office f/u with cardiology next week, cardiac rehab to be arranged. Prescriptions sent to clinic pharmacy.
[2023-05-03] MEDS: ATORVASTATIN 40MG TABLET 40 MG PO (18:55)
--- NOTE | 2023-05-06 15:23 | CARE MANAGER ---
Patient did not provide a phone number at time of admission, unable to complete f/u phone call.
--- NOTE | 2023-05-06 22:36 | EXP.DC.SUM ---
General Admission date:: 05/02/23 Discharge date: 05/03/23 HPI HPI HPI: This 52-year-old white male has hypertensive disease. He was seen in the office of [facility] yesterday. The day prior to that visit (Saturday) he had had a 20-minute episode of chest pain radiating to the back with shortness of breath and nausea. Blood pressure was elevated in the office yesterday. He states that he slept okay last night. This morning he awoke with chest pain shortness of breath nausea. He presented in the emergency room. He was found to have elevated troponins. CTA was ordered and was negative for evidence of dissection. It was felt that he warranted cardiac catheterization. He was seen by Dr. Burns and treated and stented accordingly. See report. From ER report: Initial troponin 0.2. Nonactionable CBC or chemistry. Chest x-ray without pulmonary airspace disease. See radiology read for full review of final results. Bedside echo normal. Independent interpretation of EKG shows sinus rhythm 87 beats a minute with ST depression isolated to lead I, no reciprocal change. [place], QRS, QT intervals within normal limits. Heart score 6. Patient was placed in observation beginning at 1030 in order to rule out evolving CO with serial troponins and determine need for admission versus home-going. The patient was provided heparin bolus and drip while awaiting results. Independent interpretation of results demonstrated positive delta troponin with second troponin being 0.8. On reevaluation, patient continuing to have pain that is 1-2 out of 10. At this time, patient is appropriate admission for catheterization. The patient has been a non-smoker. He does have a family history of cardiac disease. Hospital Course Hospital Course Hospital Course: The patient was taken to the [facility] and had a chronically occluded proximal dominant right coronary artery and 1 stent was placed. There was a subtotally occluded mid LAD, and this was successfully stented as well with 2 stents. There was a persistently subtotally occluded small second obtuse marginal artery which was not amenable to percutaneous revascularization. The patient was started on Effient 10 mg daily plus aspirin 81 mg daily. He was also started on a high intensity statin and an echo was ordered for the next day. By 05/03/2023, he was feeling better and denied any chest pain or shortness of breath he was resting well. He was cleared by cardiology for discharge and will follow-up in their office. He will also start cardiac rehab. Exam Data for Last 24 hours Vital signs and Labs for Last 24 Hours: Temp Pulse Resp BP Pulse Ox O2 Del Method 98.7 F 99 H 18 124/75 95 Room Air 05/03/23 15:18 05/03/23 17:03 05/03/23 15:18 05/03/23 15:18 05/03/23 15:18 05/03/23 17:00 I & O for Last 24 hours: Intake & Output 05/04/23 05/05/23 05/06/23 05/07/23 11:59 11:59 11:59 11:59 Intake Total 600 / 600 Output Total 0 / 0 Balance 600 / 600 Narrative: Constitutional Constitutional: no acute distress (Post catheterization and stenting) *Routine HEENT Exam Head: Present normocephalic Eye: Present EOMI and PERRL; Absent conjunctival icterus or scleral injection ENT: Present mucous membranes moist *Routine Neck Exam Neck: Present full ROM; Absent JVD Routine Chest/Breast/Axilla Exam Chest wall: Absent tenderness Breast: Absent tenderness Axillae: Absent lymphadenopathy or tenderness *Routine Respiratory Exam Respiratory: Present CTA bilaterally, rales (Only a few bibasilar rales) and normal respiratory effort; Absent respiratory distress, stridor or wheezes *Routine Cardiovascular Exam Cardiovascular: Present RRR and ectopic (Occasional ectopics heard, but post exam monitor looks quite stable.) *Routine Abdominal Exam Abdominal: Present soft; Absent tenderness or distended *Routine Rectal Exam Rectal:: deferred *Routine Genitalia Exam Genitalia:: deferred *Routine Extremities Exam Extremities: Absent edema Comments: Bimalleolar scars of the right ankle. Right wrist with dressing and pressure device in place Routine Back/Spine/Pelvis Exam Back/Spine: Absent CVA tenderness or vertebral tenderness *Routine Skin Exam Skin: Present intact *Routine Neurological Exam Neurological: Present alert, oriented X3 and moving all extremities; Absent altered mental status Routine Psychiatric Exam Psychiatric: Present normal affect and normal thought process DS: Diagnosis Discharge Diagnosis (1) Non-ST elevation CO (NSTEMI): Status: Acute Code(s): I21.4 - Non-ST elevation (NSTEMI) myocardial infarction (2) Status post coronary artery stent placement: Status: Acute Code(s): Z95.5 - Presence of coronary angioplasty implant and graft (3) Hypertensive cardiovascular disease: Status: Acute Code(s): I11.9 - Hypertensive heart disease without heart failure (4) Decreased cardiac ejection fraction: Status: Acute Code(s): R93.1 - Abnormal findings on diagnostic imaging of heart and coronary circulation Meds Home Medications and Allergies Home Medications Medication Instructions Recorded Confirmed Type irbesartan 150 mg tablet 150 mg PO DAILY High Blood Pressure 05/02/23 05/02/23 History aspirin 81 mg chewable tablet 81 mg PO DAILY #30 tabs 05/03/23 Rx atorvastatin 40 mg tablet 40 mg PO HS #30 tabs 05/03/23 Rx carvedilol 6.25 mg tablet 6.25 mg PO BID #60 tabs 05/03/23 Rx nitroglycerin 0.4 mg sublingual 0.4 mg sublingual Q5M PRN chest 05/03/23 Rx tablet pain #20 tabs prasugrel 10 mg tablet 10 mg PO DAILY #30 tabs 05/03/23 Rx New Prescriptions to Start Prescriptions: aspirin [place],Tato atorvastatin [place],Tato carvedilol [place],Tato nitroglycerin [place],Tato prasugrel [place],Tato Allergies Allergy/AdvReac Type Severity Reaction Status Date / Time No Known Allergies Allergy Verified 05/02/23 11:05 Discharge Plan Disposition Patient Disposition: Home, Self-Care Condition: Good Discharge Order Discharge Orders: Discharge Order (Routine); Ordered 05/03/23 Ordered By: Tato Law Follow up Plan Follow up with: Tato Law MD [Primary Care Provider] - Enter time for follow up (05/20/23, as already scheduled) Donavan Canchola MD [Staff Physician] - 1 week Prescriptions/Medication Reconciliation: New atorvastatin 40 mg Tablet 40 mg PO HS Qty: 30 0RF carvedilol 6.25 mg Tablet 6.25 mg PO BID Qty: 60 0RF aspirin 81 mg Tablet,Chewable 81 mg PO DAILY Qty: 30 0RF prasugrel 10 mg Tablet 10 mg PO DAILY Qty: 30 0RF nitroglycerin 0.4 mg tablet, sublingual 0.4 mg sublingual Q5M PRN (Reason: chest pain) Qty: 20 0RF Rx Instructions: do not exceed 3 doses per episode Continued irbesartan 150 mg tablet 150 mg PO DAILY Patient Comments: TAKE 1 TABLET BY MOUTH ONCE DAILY Discontinued amlodipine 5 mg tablet 5 mg PO DAILY Patient Comments: TAKE 1 TABLET BY MOUTH EVERY DAY Problem Reconciliation Problems Reviewed?: Yes Patient Discharge Instructions ACTIVITY: Limited activity DIET: low fat, low cholesterol and cardiac Patient Instructions: Cardiac Catheterization, Essential Hypertension, DI for Heart Failure, DI for Coronary Artery Disease Providers Primary Care Provider: Tato Law Admit Provider: Jose Solis Attending Provider: Tato Law
== END 2023-05-03 19:05 | disposition home or self-care (01) | DRG 322 ==
LOC: ER 14:18 → CATHLAB 16:13 → 2ND 17:20
PROVIDERS: Internal Medicine; Physician Assistant; Admitting Provider Family Medicine; Emergency Provider Emergency Medicine; PCP Family Medicine; Visit Provider Family Medicine
PROC: 4A023N7 Measurement of Cardiac Sampling and Pressure, Left Heart, Percutaneous Approach (ICD-10-PCS; principal; 2023-05-02 14:00)
DX: I21.4 Non-ST elevation (NSTEMI) myocardial infarction (principal); I10 Essential (primary) hypertension; E66.9 Obesity, unspecified; I25.10 Atherosclerotic heart disease of native coronary artery without angina pectoris; Z68.36 Body mass index [BMI] 36.0-36.9, adult; Z95.5 Presence of coronary angioplasty implant and graft; Z96.661 Presence of right artificial ankle joint; I25.82 Chronic total occlusion of coronary artery
CPT/HCPCS: 36415; 71045; 71275; 80048; 80053; 80061; 83036; 83880; 84484; 85025; 85347; 85378; 85730; 92928; 92943; 93005; 93306; 93454; 99152; 99153; 99291; C1725; C1760; C1769; C1876; C1894; C9600; C9607; J1644; Q9957; Q9967

== ENCOUNTER 2023-08-11 13:31 | Emergency (ER) | payer BC, SELFPAY ==
[2023-08-11 15:00] VITALS: BP 140/79; PULSE 80; RESP 18; TEMP 36.6; O2SAT 100; BMI 35.5
--- NOTE | 2023-08-11 15:32 | ED_ITS ---
Discharge Plan Disposition Patient Disposition: Home, Self-Care Condition: Good Prescriptions Prescriptions: New prednisone 20 mg tablet 20 mg PO BID Qty: 10 0RF No Action prasugrel 10 mg tablet 10 mg PO DAILY Qty: 90 3RF atorvastatin 40 mg tablet 40 mg PO HS Qty: 90 3RF aspirin 81 mg tablet,chewable 81 mg PO DAILY Qty: 90 3RF irbesartan 300 mg tablet 300 mg PO DAILY Patient Comments: TAKE ONE TABLET BY MOUTH ONCE DAILY carvedilol [Coreg] 25 mg tablet 25 mg PO BID Qty: 60 2RF Rx Instructions: give with food (meal/snack) nitroglycerin 0.4 mg tablet, sublingual 0.4 mg sublingual Q5M PRN (Reason: chest pain) Qty: 20 0RF Rx Instructions: do not exceed 3 doses per episode Referrals Follow up/Referrals: Tato Law MD [Primary Care Provider] - See instructions Activity Restrictions/Add. Instructions Additional Instructions/Restrictions: Tylenol and ibuprofen as needed for pain or fever Humidifier/vaporizer/hot steamy shower Follow-up with primary care tomorrow. Follow-up immediately in the ER of the [facility] for new or worsening symptoms or no noticeable improvement over the next 48-72 hours. Stop smoking Start steroids today. Helps with inflammation therefore coughing and wheezing. Follow directions on package. Clinical Impressions Clinical Impression: Bronchitis Instructions Patient Instructions: Acute Bronchitis Discharge ED Provider: Serina ([facility] [place] HPI General Stated complaint: chest congestion Mode of Arrival: Ambulatory Source of Information: Patient Limitations: No Limitations Time Seen by Provider: 08/11/23 15:32 Description of Symptoms (Recalled from Triage Doc. by RN): Pt's symptoms are congestion, and cough. HEENT Symptoms (Recalled from RN notes): Yes Resp Symptoms (Recalled from RN notes): No Skin Symptoms (Recalled from RN notes): No MS Symptoms (Recalled from RN notes): No Functional Status (Recalled from RN notes): n/a History of Present Illness Provider Complaint: 52 yr old male presents for c/o congestion, and cough. Related Data Home Medications Medication Instructions Recorded Confirmed irbesartan 300 mg tablet 300 mg PO DAILY 06/27/23 08/11/23 Previous Rx's Medication Instructions Recorded nitroglycerin 0.4 mg sublingual 0.4 mg sublingual Q5M PRN chest 05/03/23 tablet pain #20 tabs aspirin 81 mg chewable tablet 81 mg PO DAILY #90 tabs 05/09/23 atorvastatin 40 mg tablet 40 mg PO HS #90 tabs 05/09/23 prasugrel 10 mg tablet 10 mg PO DAILY #90 tabs 05/09/23 carvedilol 25 mg tablet (Coreg) 25 mg PO BID #60 tabs 06/27/23 prednisone 20 mg tablet 20 mg PO BID #10 tabs 08/11/23 Allergies Allergy/AdvReac Type Severity Reaction Status Date / Time No Known Allergies Allergy Verified 08/11/23 15:29 Worker's Comp Is this a Worker's Comp case?: No [facility] Disclaimer: The information contained in this section may have been updated after the patient was seen, as this information can be updated by other users. 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) Smoking Status: Never smoker alcohol intake: never current occupational status: employed Travel in the last 8 weeks: None ROS Obtained: Yes All systems reviewed & no additional complaints except as documented Constitutional Constitutional: Reports system reviewed and no additional complaints, except as documented and Reports as per HPI Eyes Eyes: Reports system reviewed and no additional complaints, except as documented ENT Ears, Nose, Mouth, and Throat: Reports system reviewed and no additional complaints, except as documented and Reports nasal congestion Cardiovascular Cardiovascular: Reports system reviewed and no additional complaints, except as documented Respiratory Respiratory: Reports system reviewed and no additional complaints, except as documented, Reports as per HPI, Reports chest congestion and Reports cough Integumentary/Breasts Skin/Breast: Reports system reviewed and no additional complaints, except as documented Neurologic Neurologic: Reports system reviewed and no additional complaints, except as documented Endocrine Endocrine: Reports system reviewed and no additional complaints, except as documented Hematologic/Lymphatic Henatologic/Lymphatic: Reports system reviewed and no additional complaints, except as documented Physical Exam General General appearance: alert and in no apparent distress Head Head exam: atraumatic Eye Eye exam: Present normal appearance and PERRL ENT ENT exam: Present normal exam, normal oropharynx, mucous membranes moist and TM's normal bilaterally Respiratory Respiratory exam: Present wheezes Cardiovascular Cardiovascular exam: Present regular rate and normal rhythm Neurological Exam Neurological exam: Present alert and oriented X3 Skin Skin exam: Present warm and intact Medical Decision Making Medical Records Medical records reviewed: Yes I reviewed the patient's medical records. Sánchez Inquiry Pt receiving controlled substance: No Sánchez was queried for this patient: No Vital Signs: 08/11/23 15:00 Temperature 97.9 F Temperature Source Oral Pulse Rate [Right Radial] 80 Respiratory Rate 18 Blood Pressure [Right Arm] 140/79 Blood Pressure Mean [Right Arm] 99 Blood Pressure Source [Right Arm] Automatic Cuff Blood Pressure Position [Right Arm] Sitting 02 Sat by Pulse Oximetry 100 Oxygen Delivery Method Room Air
[2023-08-11 15:42] VITALS: BP 140/79; PULSE 80; RESP 18; TEMP 36.6; O2SAT 100
== END 2023-08-11 15:42 | disposition home or self-care (01) ==
PROVIDERS: Emergency Provider Nurse Practitioner Family; PCP Family Medicine
DX: J20.9 Acute bronchitis, unspecified (principal); R09.81 Nasal congestion; R05.9 Cough, unspecified
CPT/HCPCS: 99204; 99212; G0463

== ENCOUNTER 2023-09-05 12:46 | Outpatient (CLI) | payer BC, SELFPAY ==
--- NOTE | 2023-09-05 12:47 | CA_ITS ---
APPROVED REPORT EXAM: Comprehensive 2D, Doppler, and color-flow Echocardiogram [employer]: Zenobia Garcia RT(R) Ht: 5 ft 11 in Wt: 255lbs BSA: 2.34 BP: 142/96 mmHg Indications: CAD, angina, HTN, hyperlipidemia, family history of HD, HFrEF 2D Dimensions LA Volume 33.90 mL LA Volume Index 14.49 mL/m2 (M/F) 16-34 EF AP2 63.9 % GL Strain -20.1 % M-Mode Dimensions RVDd 2.25 cm (0.9-2.6) LA Diam 3.27 cm (1.9-4.0) LVDd 4.94 cm (3.5-5.7) LVDs 3.65 cm (3.5-5.7) IVSd 0.88 cm (0.6-1.1) PWd 0.88 cm (0.6-1.1) EF (Teich) 51.00% FS 26.10% EDV (Teich) 115.00 mL ESV (Teich) 56.30 mL LV Diastology E Decel Time 280 (160-240 msec) E/A Ratio 1.09 Mitral Valve MV A Velocity 91.0 (40-130 cm/s) E/A Ratio 1.09 Left Ventricle The left ventricle is normal size. The left ventricular systolic function is normal. The left ventricular ejection fraction is within the normal range. There is increased LV wall thickness. There is normal LV segmental wall motion. The left ventricular diastolic function is normal. LVEF is 55%. Right Ventricle The right ventricle is normal size. The right ventricular systolic function is normal. Atria The left atrium size is normal. The right atrium size is normal. The interatrial septum is not well-visualized. Aortic Valve The aortic valve is mildly thickened. There is no aortic valvular stenosis. Trace aortic regurgitation. Mitral Valve The mitral valve leaflets are mildly thickened. No evidence of mitral valve stenosis. Mild mitral regurgitation. Tricuspid Valve The tricuspid valve leaflets are thin and pliable. Trace tricuspid regurgitation. There is insufficient TR jet to estimate RVSP. Pulmonic Valve The pulmonary valve is normal in structure. Trace pulmonic regurgitation. Great Vessels The aortic root is normal in size. The ascending aorta is normal in size. The IVC is not well-visualized. Pericardium There is no pericardial effusion. Other Information Study Quality: Fair Conclusion Normal biventricular systolic function. Mild MR. Electronically signed by : Thao Canchola MD 09/12/2023 00:08:24
== END 2023-09-05 23:59 | disposition home or self-care (01) ==
LOC: RT 12:47
PROVIDERS: PCP Family Medicine; Visit Provider Physician Assistant
DX: I10 Essential (primary) hypertension (principal); E78.5 Hyperlipidemia, unspecified; I50.20 Unspecified systolic (congestive) heart failure; I25.10 Atherosclerotic heart disease of native coronary artery without angina pectoris; R93.1 Abnormal findings on diagnostic imaging of heart and coronary circulation; I21.4 Non-ST elevation (NSTEMI) myocardial infarction; Z95.5 Presence of coronary angioplasty implant and graft; I11.9 Hypertensive heart disease without heart failure
CPT/HCPCS: 93306

== ENCOUNTER 2024-01-03 12:34 | Emergency (ER) | payer BC, SELFPAY ==
[2024-01-03 12:40] VITALS: BP 144/95; PULSE 74; RESP 19; TEMP 36.8; O2SAT 99; BMI 34.8
--- NOTE | 2024-01-03 12:53 | XR_ITS ---
FINAL REPORT CLINICAL HISTORY: Pain, puncture at anterior thumb tip. COMPARISON: None FINDINGS: LEFT HAND Three views demonstrate no acute fracture or dislocation. The visualized joint spaces are normally aligned. The soft tissues are unremarkable. IMPRESSION: No acute process. Reviewed, Interpreted and Dictated by Jose Vega MD Transcribed by Dee Dee Howard Authenticated and [facility]
--- NOTE | 2024-01-03 13:16 | EXP.UTC ---
Discharge Plan Disposition Patient Disposition: Home, Self-Care Condition: Good Prescriptions Prescriptions: New clindamycin HCl 300 mg capsule 300 mg PO Q8H 7 Days Qty: 21 0RF No Action atorvastatin 40 mg tablet 40 mg PO HS Patient Comments: TAKE ONE TABLET BY MOUTH EVERY DAY carvedilol 25 mg tablet 25 mg PO DAILY Patient Comments: TAKE ONE TABLET BY MOUTH TWICE DAILY WITH FOOD carvedilol 6.25 mg tablet 6.25 mg PO DAILY Patient Comments: TAKE ONE TABLET BY MOUTH TWICE DAILY irbesartan 300 mg tablet 300 mg PO DAILY Patient Comments: TAKE ONE TABLET BY MOUTH ONCE DAILY prasugrel 10 mg tablet 10 mg PO DAILY Patient Comments: TAKE ONE TABLET BY MOUTH EVERY DAY Referrals Follow up/Referrals: Tato Law MD [Primary Care Provider] - See instructions Activity Restrictions/Add. Instructions Additional Instructions/Restrictions: Soak finger in warm water and epson salt Take oral antibiotics as prescribed Follow up with your Family Doctor Straight to ER if any streaking, drianage worsening of redness, or any life threatening symptoms Clinical Impressions Clinical Impression: Puncture wound Instructions Patient Instructions: DI for Puncture Wound, Clindamycin Print Language Print Language: Greek Discharge ED Provider: Mikayla Mayorga [facility] [place] H[place] General Stated complaint: AO 12/29 left thumb injury Mode of Arrival: Ambulatory Source of Information: Patient Limitations: No Limitations Time Seen by Provider: 01/03/24 13:16 Description of Symptoms (Recalled from Triage Doc. by RN): PATIENT STATES HE WAS USING A PLASTIC SNAKE TO UNCLOG A DRAIN AND A PIECE OF THE PLASTIC WENT INTO HIS THUMB 3 DAYS AGO. C/O TENDERNESS TO THUMB HEENT Symptoms (Recalled from RN notes): No Resp Symptoms (Recalled from RN notes): No Skin Symptoms (Recalled from RN notes): Yes MS Symptoms (Recalled from RN notes): Yes Functional Status (Recalled from RN notes): WNL History of Present Illness Provider Complaint: Patient states that he was using a drain snake to unclog the drain when a sharp edge poked into the tip of his left thumb States area is sore and getting more red worried it may be infected so he came in Related Data Home Medications ?Medication ?Instructions ?Recorded ?Confirmed atorvastatin 40 mg tablet 40 mg PO HS 01/03/24 01/03/24 carvedilol 25 mg tablet 25 mg PO DAILY 01/03/24 01/03/24 carvedilol 6.25 mg tablet 6.25 mg PO DAILY 01/03/24 01/03/24 irbesartan 300 mg tablet 300 mg PO DAILY 01/03/24 01/03/24 prasugrel 10 mg tablet 10 mg PO DAILY 01/03/24 01/03/24 Previous Rx's ?Medication ?Instructions ?Recorded clindamycin HCl 300 mg capsule 300 mg PO Q8H 7 days #21 caps 01/03/24 Allergies Allergy/AdvReac Type Severity Reaction Status Date / Time No Known Allergies Allergy Verified 08/11/23 15:29 Worker's Comp Is this a Worker's Comp case?: No [facility] Disclaimer: The information contained in this section may have been updated after the patient was seen, as this information can be updated by other users. 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) Smoking Status: Never smoker alcohol intake: never current occupational status: employed Travel in the last 8 weeks: None ROS Obtained: Yes All systems reviewed & no additional complaints except as documented and Yes Systems reviewed as appropriate & no additional complaints except as documented Constitutional Constitutional: Reports system reviewed and no additional complaints, except as documented and Reports as per HPI ENT Ears, Nose, Mouth, and Throat: Reports system reviewed and no additional complaints, except as documented and Reports as per HPI Cardiovascular Cardiovascular: Reports system reviewed and no additional complaints, except as documented and Reports as per HPI Respiratory Respiratory: Reports system reviewed and no additional complaints, except as documented and Reports as per HPI Gastrointestinal Gastrointestingal: Reports system reviewed and no additional complaints, except as documented and as per HPI Integumentary/Breasts Skin/Breast: Reports system reviewed and no additional complaints, except as documented, Reports as per HPI and Reports other Comments: redness, swelling and warmth to tip of left thumb after getting sharp edge of drain snake poked into thumb Physical Exam General General appearance: alert and in no apparent distress ENT ENT exam: Present mucous membranes moist Respiratory Respiratory exam: Absent respiratory distress or wheezes Cardiovascular Cardiovascular exam: Present regular rate, normal rhythm and normal heart sounds Expanded Upper Extremity Exam Left: Hand exam: Present tenderness, swelling and erythema Hand L/R front image: 1. other (small puncture wound noted with surrounding redness) Neurological Exam Neurological exam: Present alert, oriented X3 and normal gait Medical Decision Making Medical Records Screening: Per USPSTF and CDC recommendations, given the prevalence of disease in our region, it is our hospital?s policy to screen for HIV and viral Hepatitis for all patients aged 18 and over and those with ongoing risk factors. Sánchez Inquiry Pt receiving controlled substance: No Sánchez was queried for this patient: No Vital Signs: 01/03/24 12:40 Temperature 98.2 F Temperature Source Oral Pulse Rate [Left Brachial] 74 Respiratory Rate 19 Blood Pressure [Left Arm] 144/95 H Blood Pressure Mean [Left Arm] 111 Blood Pressure Source [Left Arm] Automatic Cuff Blood Pressure Position [Left Arm] Sitting 02 Sat by Pulse Oximetry 99 Oxygen Delivery Method Room Air Orders (Tests/Meds): ORDERS Category Date Time Status Hand XR left minimum 3 views [XR hand LT min 3V] Stat Exams 01/03/24 12:53 Taken Radiology Data #1: Image(s): Hand Image Reviewed: Yes I reviewed the patient's radiology image No FB no acute fracture
[2024-01-03] MEDS: TET/DIPHTH/PERT-ADULT 0.5ML SYRINGE 0.5 ML IM (13:27)
[2024-01-03 13:33] VITALS: BP 144/95; PULSE 74; RESP 19; TEMP 36.8; O2SAT 99
== END 2024-01-03 13:37 | disposition home or self-care (01) ==
PROVIDERS: Emergency Provider Nurse Practitioner; PCP Family Medicine
DX: S61.032A Puncture wound without foreign body of left thumb without damage to nail, initial encounter (principal); W26.8XXA Contact with other sharp object(s), not elsewhere classified, initial encounter; Z23 Encounter for immunization
CPT/HCPCS: 73130; 90471; 90715; 99212; 99214; G0463

== ENCOUNTER 2024-02-25 10:57 | Emergency (ER) | payer BC, SELFPAY ==
[2024-02-25 10:58] VITALS: BP 148/84; PULSE 81; RESP 18; TEMP 36.8; O2SAT 95; BMI 36.9
[2024-02-25 11:27] LABS: Coronavirus 19, PCR Not Detected (NotDetected); Influenza A, PCR Not Detected (NotDetected); Influenza B, PCR Not Detected (NotDetected)
[2024-02-25 11:42] LABS: Strep Scrn Group A (Rapid) Negative (Negative)
--- NOTE | 2024-02-25 12:17 | HMH.EDGENADL ---
Discharge Plan Disposition Patient Disposition: Home, Self-Care Condition: Good Prescriptions Prescriptions: No Action famotidine 40 mg tablet 40 mg PO DAILY Patient Comments: TAKE ONE TABLET BY MOUTH EVERY DAY carvedilol 25 mg tablet 25 mg PO BID Patient Comments: TAKE ONE TABLET BY MOUTH TWICE DAILY WITH FOOD atorvastatin 40 mg tablet 40 mg PO HS Patient Comments: TAKE ONE TABLET BY MOUTH EVERY DAY irbesartan 300 mg tablet 300 mg PO DAILY Patient Comments: TAKE ONE TABLET BY MOUTH ONCE DAILY prasugrel 10 mg tablet 10 mg PO DAILY Patient Comments: TAKE ONE TABLET BY MOUTH EVERY DAY Referrals Follow up/Referrals: Tato Law MD [Primary Care Provider] - See instructions Activity Restrictions/Add. Instructions Additional Instructions/Restrictions: You were evaluated in the ER and are appropriate for discharge at this time. Take Tylenol if needed for pain, do not exceed the recommended dose on the bottle, drink plenty of. Make an appointment with your primary care doctor for reevaluation in 2 to 3 days, return to the ER with new, worsening, or otherwise concerning symptoms water Clinical Impressions Clinical Impression: Pharyngitis Print Language Print Language: Guyanese Discharge ED Provider: Mauricio Mathis General Adult HPI General Chief complaint: Upper Respiratory Infection Stated complaint: sore throat sore spots in mouth Time Seen by Provider: 02/25/24 12:12 Mode of Arrival: Ambulatory Source of Information: Patient Limitations: No Limitations Description of Symptoms (Recalled from ER Triage Doc. by RN): SORE THROAT,SORES INSIDE MOUTH History of Present Illness HPI narrative: 53-year-old male with a history of hypertension, hyperlipidemia, HFrEF, CAD presents to the ER for complaints of sore throat this been going on for few days. Patient reports he also has some canker sores inside his mouth. These onset at the same time. Patient reports he is worked approximately 100 hours a week for the last 3 months and is finally getting to take a break now. He states the right side of his throat hurts more than the left but he is able to swallow, no pain with turning his head, no difficulty breathing. He denies fevers, chills, chest pain, cough, congestion, vomiting, diarrhea, or other associated symptoms. Related Data Home Medications ?Medication ?Instructions ?Recorded ?Confirmed atorvastatin 40 mg tablet 40 mg PO HS 01/03/24 02/13/24 irbesartan 300 mg tablet 300 mg PO DAILY 01/03/24 02/13/24 prasugrel 10 mg tablet 10 mg PO DAILY 01/03/24 02/13/24 carvedilol 25 mg tablet 25 mg PO BID 02/13/24 02/13/24 famotidine 40 mg tablet 40 mg PO DAILY 02/13/24 02/13/24 Allergies Allergy/AdvReac Type Severity Reaction Status Date / Time No Known Allergies Allergy Verified 02/13/24 15:04 [facility] Disclaimer: The information contained in this section may have been updated after the patient was seen, as this information can be updated by other users. Medical History HTN (hypertension) HLD (hyperlipidemia) HFrEF (heart failure with reduced ejection fraction) Coronary artery disease Hypertensive cardiovascular disease Surgical History Status post coronary artery stent placement History of arthroplasty of right ankle Social History Smoking Status: Never smoker alcohol intake: never current occupational status: employed Travel in the last 8 weeks: None Other Medical History Have you received the Flu Vaccine for this season: No Have you received the Pneumonia Vaccine: No ROS Obtained: Yes Systems reviewed as appropriate & no additional complaints except as documented ROS per HPI Physical Exam General General appearance: alert and in no apparent distress Head Head exam: atraumatic and normocephalic Eye Eye exam: Present PERRL and EOMI ENT ENT exam: Present mucous membranes moist and other (Mildly erythematous posterior oropharynx without tonsillomegaly, no exudates) Neck Neck exam: Present normal inspection and full ROM; Absent lymphadenopathy Chest Chest inspection: Present symmetric chest wall rise Respiratory Respiratory exam: Absent respiratory distress or stridor Cardiovascular Cardiovascular exam: Present regular rate and normal rhythm Extremities Exam Extremities exam: Present full ROM Neurological Exam Neurological exam: Present alert and oriented X3; Absent motor sensory deficit Psychiatric Psychiatric exam: Present normal affect and normal mood Skin Skin exam: Present warm and dry Medical Decision Making Medical Records Medical records reviewed: Yes I reviewed the patient's medical records. Screening: Per USPSTF and CDC recommendations, given the prevalence of disease in our region, it is our hospital?s policy to screen for HIV and viral Hepatitis for all patients aged 18 and over and those with ongoing risk factors. MR Comment: Most recent cardiology note from February 2024 was reviewed demonstrating patient was visiting for a 6-month follow-up and did not have any complaints at that time, they recommended home blood pressure monitoring, basic labs, return to clinic in 3 to 4 months Sánchez Inquiry Pt receiving controlled substance: No Vital Signs: 02/25/24 10:58 Temperature 98.3 F Temperature Source Oral Pulse Rate [Right] 81 Respiratory Rate 18 Blood Pressure [Right Arm] 148/84 H Blood Pressure Mean [Right Arm] 105 02 Sat by Pulse Oximetry 95 Oxygen Delivery Method Room Air Lab Data Lab Results 02/25/24 11:25: SARS-CoV-2 (PCR) Not detected, Influenza A Untype (PCR) Not detected, Influenza Type B (PCR) Not detected, Group A Strep Rapid Negative Orders (Tests/Meds): ORDERS Category Date Time Status HIV (1&2) Antibody Rapid Stat Lab 02/25/24 11:16 Ordered Hep C Ab with Reflex to RNA Stat Lab 02/25/24 11:16 Ordered Rapid PCR Covid and Flu A/B Stat Lab 02/25/24 11:25 Completed Strep Scrn Group A (Rapid) Stat Lab 02/25/24 11:25 Completed Strep Screen Confirmation Stat Micro 02/25/24 11:25 Received Medical Decision Narrative: 53-year-old male with comorbidities as described in HPI presents to the ER for complaints of sore throat. Differential diagnose includes but is not limited to viral syndrome, I considered strep but have lower suspicion for this, I considered peritonsillar abscess or retropharyngeal abscess but extremely low suspicion as patient has no voice changes, no difficulty swallowing, no asymmetry of the tonsils, no pain with rotation of the neck or extension. No fevers. On evaluation patient is hemodynamically stable, afebrile, mild tonsillar erythema without enlargement or exudate, no lymphadenopathy, few aphthous ulcers in the mouth are present. Remainder of exam reassuring. Viral swab and strep swab were performed, these were reviewed and are negative. Patient is appropriate for discharge. He requested COVID shot which we do not have available, I instructed him to follow-up with his PCP for this. Patient was given instructions on symptomatic management, follow up instructions, and return precautions for the emergency department. Patient indicated understanding and was discharged in stable condition. Critical Care Critical Care Time Critical Care Time: No
[2024-02-25 12:24] VITALS: BP 130/78; PULSE 81; RESP 18; TEMP 36.9; O2SAT 99
== END 2024-02-25 12:25 | disposition home or self-care (01) ==
PROVIDERS: Emergency Provider Emergency Medicine; PCP Family Medicine
DX: J02.9 Acute pharyngitis, unspecified (principal); K13.79 Other lesions of oral mucosa
CPT/HCPCS: 87430; 87636; 99283

== ENCOUNTER 2024-08-01 11:31 | Outpatient (CLI) | payer BC, SELFPAY ==
[2024-08-01 11:53] LABS: Basophils # 0.1 K/mm3 (0-0.2); Basophils % 1.2 % (0.1-2.0); Eosinophils # 0.1 Kmm3 (0.0-0.4); Eosinophils % 1.2 % (0.1-12.0); Hematocrit 47.1 % (42.0-52.0); Hemoglobin 15.2 g/dL (14.1-18.0); Lymphocytes # 2.2 K/mm3 (0.7-4.5); Mean Corpuscular HGB Conc 32.3 g/dL (31.8-35.4); Mean Corpuscular Volume 86.7 fl (80-94); Mean Platelet Volume 10.1 fl (7.4-10.4); Monocytes # 0.7 K/mm3 (0.1-1.0); Monocytes % 10.8 % (1.7-9.3); Neutrophils # 3.1 K/mm3 (1.8-7.8); Neutrophils % 50.5 % (37.0-80.0); Nucleated Red Blood Cells # 0 10^3/uL; Nucleated Red Blood Cells % 0 %; Platelet Count 258 K/mm3 (142-424); Red Blood Count 5.43 M/mm3 (4.60-6.20); Red Cell Distribution Width 14.7 % (11.5-17.5); Red Cell Distribution Width-SD 46.5 fL
[2024-08-01 12:53] LABS: Chloride 106 mmol/L (98-107); Potassium 5.1 mmoL/L (3.5-5.1); Sodium 141 mmol/L (136-145)
[2024-08-01 12:55] LABS: Bilirubin,Unconjugated 2.3 mg/dL (0.0-1.1); Blood Urea Nitrogen 14 mg/dl (9-20); Estimated Glomerular Filt Rate 79 ml/min (>60); GFR (African American) 95 ML/MIN (>60)
[2024-08-01 12:56] LABS: Alanine Aminotransferase 28 U/L (12-78); Alkaline Phosphatase 119 U/L (38-126); Anion Gap 12.1 mEq/L (5-15); Aspartate Amino Transferase 27 U/L (17-59); Bilirubin,Indirect 2.3 mg/dL (0.0-0.9); Bilirubin,Total 2.3 mg/dl (0.2-1.3); Calcium 9.5 mg/dl (8.4-10.2); Carbon Dioxide 28 mmol/L (22.0-30.0); Chol/HDL Ratio 3.8 (1-3.5); Cholesterol 119 mg/dl (140-200); Glucose 94 mg/dl (74-100); HDL Cholesterol 31 mg/dl (40-60); Magnesium 1.7 mg/dl (1.6-2.3); Total Protein,Serum 7.2 g/dl (6.3-8.2); Triglycerides 85 mg/dl (30-150); VLDL Cholesterol 17 mg/dL (0-40)
[2024-08-01 13:07] LABS: Direct LDL Cholesterol 72.62 mg/dL (100-129)
[2024-08-01 13:27] LABS: Thyroid Stimulating Hormone 0.98 uIU/mL (0.465-4.68)
== END 2024-08-01 23:59 | disposition home or self-care (01) ==
LOC: LAB 11:32
PROVIDERS: PCP Family Medicine; Visit Provider Nurse Practitioner Family
DX: Z12.5 Encounter for screening for malignant neoplasm of prostate (principal); I11.0 Hypertensive heart disease with heart failure; I50.32 Chronic diastolic (congestive) heart failure; I25.10 Atherosclerotic heart disease of native coronary artery without angina pectoris; R06.81 Apnea, not elsewhere classified; G47.9 Sleep disorder, unspecified; R40.0 Somnolence; E78.5 Hyperlipidemia, unspecified
CPT/HCPCS: 36415; 80048; 80061; 80076; 83735; 84439; 84443; 85025; G0103

== ENCOUNTER 2024-10-08 11:55 | Day surgery (SDC) | payer BC, SELFPAY ==
--- NOTE | 2024-10-08 12:25 | EXP.HP ---
History of Present Illness *Admission Date: 10/08/24 *Reason for visit:: Screening for colon cancer *History of present illness: Mr. Rasmussen is a 53-year-old gentleman who is here for screening colonoscopy/screening for colon cancer. The examination is deemed medically necessary for screening colonoscopy. The patient has been seen, interviewed and examined prior to the procedure by both myself and the anesthesia provider. [facility] Disclaimer: The information contained in this section may have been updated after the patient was seen, as this information can be updated by other users. Medical History Heart failure with improved ejection fraction (HFimpEF) HTN (hypertension) HLD (hyperlipidemia) HFrEF (heart failure with reduced ejection fraction) Coronary artery disease Hypertensive cardiovascular disease Surgical History Status post coronary artery stent placement History of arthroplasty of right ankle Family History (Updated 10/08/24 @ 12:21 by Alesha Stapleton RN) Other Family history of cancer Social History (Updated 10/08/24 @ 12:23 by Alesha Stapleton RN) Smoking Status: Never smoker alcohol intake: never current occupational status: employed Travel in the last 8 weeks?: None Have you lived/traveled outside US in past 30 days?: No Contact w/someone who lives/traveled outside US past 30 days?: No Exposure to someone with infectious disease in past 14 days?: No Do you have a fever (greater than 100.4 F or 38 C)?: No Have you tested positive for COVID-19?: No Exposed to someone with COVID-19 in past 14 days?: No Do you have a sore throat?: No Do you have a cough?: No Do you have any weakness?: No Do you have any diarrhea?: No Are you experiencing any unusual bleeding?: No Do you have any muscle aches/pain?: No Do you have any abdominal pain?: No Are you experiencing loss of taste or smell?: No Other Medical History Have you received the Flu Vaccine for this season: No Have you received the Pneumonia Vaccine: No Review of Systems Review of Systems Review of systems (narrative): Negative *Cardiovascular Comments: Negative *Gastrointestinal Comments: Negative *Genitourinary Comments: Negative *Musculoskeletal Comments: Negative *Neurologic Comments: Negative Meds Home Medications and Allergies Home Medications ?Medication ?Instructions ?Recorded ?Confirmed ?Type atorvastatin 40 mg tablet 40 mg PO HS 01/03/24 10/08/24 History carvedilol 25 mg tablet 25 mg PO BID 02/13/24 10/08/24 History famotidine 40 mg tablet 40 mg PO DAILY 02/13/24 10/08/24 History aspirin 81 mg tablet 81 mg PO DAILY 06/25/24 10/08/24 History nitroglycerin 0.4 mg sublingual 0.4 mg sublingual Q5-15M PRN chest 06/25/24 10/08/24 Rx tablet pain #20 tabs sodium,potassium,mag sulfates 17.5 See Rx Instructions PO .COMPLEX 09/21/24 10/08/24 Rx gram-3.13 gram-1.6 gram oral soln #354 mL (Suprep Bowel Prep Kit) irbesartan 300 mg tablet (Avapro) 300 mg PO DAILY 10/08/24 10/08/24 History prasugrel HCl 10 mg tablet 10 mg PO DAILY 10/08/24 10/08/24 History (Effient) New Prescriptions to Start Prescriptions: Allergies Allergy/AdvReac Type Severity Reaction Status Date / Time No Known Allergies Allergy Verified 09/10/24 09:23 Exam *Routine HEENT Exam Head: Present normocephalic Eye: Present EOMI and PERRL ENT: Present mucous membranes moist *Routine Neck Exam Neck: Present supple *Routine Respiratory Exam Respiratory: Present CTA bilaterally *Routine Cardiovascular Exam Cardiovascular: Present RRR *Routine Abdominal Exam Abdominal: Present soft and normoactive bowel sounds; Absent tenderness *Routine Rectal Exam Rectal:: deferred *Routine Genitalia Exam Genitalia:: deferred *Routine Extremities Exam Extremities: Absent cyanosis, clubbing or edema *Routine Skin Exam Skin: Present warm; Absent rash *Routine Neurological Exam Neurological: Present alert and oriented X3 Assessment and Plan *Assessment and plan (1) Screening for colon cancer: Status: Acute Category: Medical Code(s): Z12.11 - Encounter for screening for malignant neoplasm of colon Plan A/P: 1. Screening for colon cancer is the preprocedural diagnosis. The patient will be anesthetized/sedated using MAC sedation. The patient has been seen and examined. Cardiac and lung assessment prior to the examination is stable. Proceed with planned screening colonoscopy.
[2024-10-08 12:28] VITALS: BP 132/92; PULSE 71; RESP 16; TEMP 36.6; O2SAT 97; BMI 36.8
--- NOTE | 2024-10-08 13:38 | EXP.ANES.CKL ---
[facility] Disclaimer: The information contained in this section may have been updated after the patient was seen, as this information can be updated by other users. Medical History Heart failure with improved ejection fraction (HFimpEF) HTN (hypertension) HLD (hyperlipidemia) HFrEF (heart failure with reduced ejection fraction) Coronary artery disease Hypertensive cardiovascular disease Surgical History Status post coronary artery stent placement History of arthroplasty of right ankle Family History (Updated 10/08/24 @ 12:21 by Alesha Stapleton RN) Other Family history of cancer Social History (Updated 10/08/24 @ 12:23 by Alesha Stapleton RN) Smoking Status: Never smoker alcohol intake: never substance use type: denies use current occupational status: employed Travel in the last 8 weeks?: None [facility] Anesthesia Checklist Patient Identification Patient Identification: Arm Band and Verbal (Name & ) Structural Data Admitted From: Home Planned Operative Procedure/s: colonoscopy Consent for Planned Operative Procedure(s) Verified: Yes Verified Documents: Surgical Consent NPO Status Verified Time NPO: 00:00 Chart Verification Results Verified: ECG Additional verifications Anesthesia Reactions: No Hx Blood Transfusions: No Blood Transfusion Reaction: No Airway Assessment Mallampati Score:: Class II C-Spine Mobility Assessed: Yes TMJ Mobility Assessed: Yes Dentition: Good Dentition Neurological Assessment Level of Consciousness: Awake, Alert and Appropriate Hx Seizures: No Numbness or tingling in extremities: No Anesthesia Plan Anesthesia Risk discussed: Yes Anesthesia Plan: Verified ASA Class: II Anesthesia Type: MAC
--- NOTE | 2024-10-08 13:39 | HMH.PROCNOTE ---
[facility] Procedure Note Date: 10/08/24 Time: 14:02 Procedure Note:: Colonoscopy Procedure Report: Colonoscopy with cold snare polypectomy Endoscopist: Jose Elias Iverson II, MD Referring physician: Tato Law MD Date of Procedure: October 08, 2024 Equipment: Olympus 190 variable stiffness pediatric colonoscope Sedation: MAC sedation Indication: Mr. Rasmussen is a 53-year-old gentleman who is here for initial screening colonoscopy. He reports no abdominal pain, weight loss, change in his bowel habits or rectal bleeding. He reports no known family history of colon cancer but does state that his maternal grandmother had ovarian cancer and possibly colon cancer. Procedure: Prior to the procedure, a history and physical exam was performed, and patient's medications and allergies were reviewed. The risks, benefits and alternatives of the sedation and procedure were discussed with the patient. All questions were answered and informed consent was obtained. The patient was brought to the procedure room. Patient identification and proposed procedure were verified by the physician and the nurse. The patient was placed in a left lateral decubitus position and the scope was passed under direct vision. Throughout the procedure, the patient's blood pressure, pulse, and oxygen saturations were monitored continuously. The colonoscopy was accomplished without difficulty. The patient tolerated the procedure well. Findings: On digital rectal examination there was normal rectal tone. There were no external hemorrhoids. The prostate was 2+, smooth, soft, symmetric without nodules. The colonoscope was introduced through the anal canal to the rectum and advanced to the cecum. The ileocecal valve and appendiceal orifice were identified. The scope was advanced a short distance into the ileum which appeared grossly normal. The scope was then withdrawn into the colon. There were 3 diminutive colon polyps (transverse x 2 (3 and 4 mm) and descending x 1 (4 mm)). These were all removed via cold snare polypectomy. The cecum, ascending and transverse colon and mucosa were grossly normal. There were scattered diverticuli throughout the descending and sigmoid colon (LEFT colon). The rectum itself was normal. Upon retroflexion within the rectum there were grade 2 internal hemorrhoids. The preparation was excellent throughout with [place] Preparation Score of 9. The cecal time was 12 minutes. Impression: 1. Diminutive colonic polyps x 3 2. Left-sided diverticulosis 3. Grade 2 internal hemorrhoids Plan: I will follow-up the polyp histology and recommend repeat surveillance colonoscopy again in 5 to 7 years based upon the pathology. I would encourage psyllium bulking fiber supplementation on a long-term daily maintenance basis.
[2024-10-08 14:04] VITALS: BP 130/78; PULSE 81; RESP 18; TEMP 36.2; O2SAT 95
[2024-10-08 14:14] VITALS: BP 131/77; PULSE 72; RESP 18; O2SAT 95
[2024-10-08 14:24] VITALS: BP 128/73; PULSE 72; RESP 17; O2SAT 98
[2024-10-08 14:34] VITALS: BP 128/86; PULSE 67; RESP 18; O2SAT 98
== END 2024-10-08 14:44 | disposition home or self-care (01) ==
PROVIDERS: PCP Family Medicine; Visit Provider Internal Medicine Gastroenterology
PROC: 0DJD8ZZ Inspection of Lower Intestinal Tract, Via Natural or Artificial Opening Endoscopic (ICD-10-PCS; CPT 45378; principal; 2024-10-08 13:30)
DX: Z12.11 Encounter for screening for malignant neoplasm of colon (principal); K63.5 Polyp of colon; D12.4 Benign neoplasm of descending colon; K57.30 Diverticulosis of large intestine without perforation or abscess without bleeding; K64.1 Second degree hemorrhoids; E78.5 Hyperlipidemia, unspecified; I11.0 Hypertensive heart disease with heart failure; I50.22 Chronic systolic (congestive) heart failure; I25.10 Atherosclerotic heart disease of native coronary artery without angina pectoris; Z95.5 Presence of coronary angioplasty implant and graft; Z79.899 Other long term (current) drug therapy; Z79.82 Long term (current) use of aspirin; Z79.02 Long term (current) use of antithrombotics/antiplatelets
CPT/HCPCS: 45385; J2003; J2704